=== PATIENT | female | born 1945 | race African-American/Black ===

== ENCOUNTER → 2017-01-11 | Outpatient (CLI) | payer MEDICARE ==
--- NOTE | 2017-01-11 16:04 | BD ---
EXAMINATION TYPE: MG DEXA axial skeleton. DATE OF EXAM: 01/11/2017 8:19 AM COMPARISON: NONE CLINICAL HISTORY: Height: 5 FT 2 1/2 Weight: 169 FRAX RISK QUESTIONS: Alcohol (3 or more units per day): NO Family History (Parent hip fracture): NO Glucocorticoids (More than 3mos): NO (Ex: prednisone, prednisolone, methylprednisolone, dexamethasone, and hydrocortisone). History of Fracture in Adulthood: NO Secondary Osteoporosis: 1. Type 1 Diabetes: NO 2. Hyperthyroidism: NO 3. Menopause before 45: NO 4. Malnutrition: NO 5. Chronic liver disease: NO Rheumatoid Arthritis: NO Current Tobacco Use: NO RISK FACTORS HISTORY OF: Active: YES Postmenopausal woman: AGE 54 MEDICATIONS: Additional Medications: LISINOPRIL, METFORMIN, Additional History: EXAM MEASUREMENTS: Bone mineral densitometry was performed using the Pag[employer] System. Bone mineral density as measured about the Lumbar spine is: ----- L1-L4(G/cm2): 1.307 T Score Values are as follows: ----- L2: 0.9 ----- L3: 0.9 ----- L4: 1.3 ----- L1-L4: 1.1 Bone mineral density has: Decreased -3.3% since study of: 2009 Bone mineral density about the R hip (g/cm2): 0.846 Bone mineral density about the L hip (g/cm2): 0.894 T Score values are as follows: -----R Neck: -1.4 -----L Neck: -1.0 -----R Intertrochanter: -1.4 -----L Intertrochanter: -0.4 Bone mineral density has: Decreased -7.5% since study of: 2009 IMPRESSION: Osteopenia (T Score between -2.5 and -1 as noted by T score values There is slightly increased risk of fracture and the patient may be considered for treatment. Re-Screen 1-2 years. NOTE: T-SCORE=SD OF THE YOUNG ADULT MEAN.
== END | disposition home or self-care (01) ==
LOC: RADBDWWP 08:01
PROVIDERS: ATTEND Family Medicine
DX: Z13.820 Encounter for screening for osteoporosis (principal); Z78.0 Asymptomatic menopausal state
CPT/HCPCS: 77080

== ENCOUNTER → 2017-01-19 | Outpatient (CLI) | payer MEDICARE ==
--- NOTE | 2017-01-19 10:21 | ECHOF ---
Referral Reason:R01.1 cardiac murmur MEASUREMENTS -------- HEIGHT: 157.5 cm WEIGHT: 76.2 kg BP: IVSd: 1.3 cm (0.6 - 1.1) LVIDd: 3.5 cm (3.9 - 5.3) LVPWd: 1.5 cm (0.6 - 1.1) IVSs: 1.8 cm LVIDs: 2.0 cm LVPWs: 2.2 cm Ao Diam: 3.0 cm (2.0 - 3.7) AV Cusp: 2.1 cm (1.5 - 2.6) LA Diam: 3.3 cm (2.7 - 3.8) MV EXCURSION: 14.273 mm (> 18.000) MV EF SLOPE: 81 mm/s (70 - 150) EPSS: 0.5 cm MV E Remy: 0.87 m/s MV DecT: 176 ms MV A Remy: 1.12 m/s MV E/A Ratio: 0.78 RAP: 5.00 mmHg RVSP: 21.70 mmHg FINDINGS -------- Sinus rhythm with extra systolic beats. This was a technically good study. There is mild concentric left ventricular hypertrophy. Overall left ventricular systolic function is normal with, an EF between 55 - 60 %. The right ventricle is normal in size and function. The left atrium is normal in size. The right atrium is normal in size. The aortic valve is trileaflet, and appears structurally normal. No aortic stenosis or regurgitation. The mitral valve leaflets are mildly thickened. Mild mitral regurgitation is present. Mild tricuspid regurgitation present. The right ventricular systolic pressure, as measured by Doppler, is 21.70mmHg. Pulmonic valve appears structurally normal. The aortic root size is normal. The pericardium is normal. CONCLUSIONS -------- 1. Sinus rhythm with extra systolic beats. 2. Mild mitral regurgitation is present. 3. Mild tricuspid regurgitation present. 4. The right ventricular systolic pressure, as measured by Doppler, is 21.70mmHg. 5. Pulmonic valve appears structurally normal. 6. The aortic root size is normal. 7. The pericardium is normal. 8. This was a technically good study. 9. There is mild concentric left ventricular hypertrophy. 10. Overall left ventricular systolic function is normal with, an EF between 55 - 60 %. 11. The right ventricle is normal in size and function. 12. The left atrium is normal in size. 13. The right atrium is normal in size. 14. The aortic valve is trileaflet, and appears structurally normal. No aortic stenosis or regurgitation. 15. The mitral valve leaflets are mildly thickened. RECOVERER: Trina Lozoya RDCS
== END | disposition home or self-care (01) ==
LOC: RADECHMAIN 08:15
PROVIDERS: ATTEND Family Medicine
DX: I08.1 Rheumatic disorders of both mitral and tricuspid valves (principal)
CPT/HCPCS: 93306

== ENCOUNTER → 2017-10-26 | Outpatient (CLI) | payer MEDICARE ==
--- NOTE | 2017-10-26 10:19 | USB ---
Reason for exam: additional evaluation requested from abnormal screening. History: Patient is postmenopausal. Excisional biopsy of the left breast. Took hormonal contraceptives for 4 months beginning at age 18. Physical Findings: Nurse Summary: 1cm nodule in the left breast at 1 o'clock (nurse malena). 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 These results were verbally communicated with the patient and result sheet given to the patient on 10/26/17. ASSESSMENT: Benign, BI-RAD 2 RECOMMENDATION: Return to routine screening mammogram schedule for both breasts. Manage patient on a clinical basis.
== END | disposition home or self-care (01) ==
LOC: RADUSWWP 08:56
PROVIDERS: ATTEND Family Medicine
DX: R92.8 Other abnormal and inconclusive findings on diagnostic imaging of breast (principal)

== ENCOUNTER 2018-02-14 21:18 | Emergency (ER) | payer OTHER, MEDICARE ==
[2018-02-14 21:23] VITALS: RESP 18
[2018-02-14] MEDS ORDERED: KETOROLAC 30 MG/ML 1 ML VIAL IM STA (21:59)
[2018-02-14] MEDS ORDERED: ORPHENADRINE 30 MG/ML 2 ML VIAL IM STA (21:59)
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
--- NOTE | 2018-02-14 22:32 | XR ---
EXAMINATION TYPE: XR cervical spine comp DATE OF EXAM: 02/14/2018 COMPARISON: NONE HISTORY: Neck pain TECHNIQUE: 5 views FINDINGS: Vertebra have normal alignment. There is some narrowing of the disc spaces from C4 to C7 wi th anterior spurring. Neural foramina are fairly well-maintained. Atlantoaxial facet joint is normal. There are no cervical ribs. IMPRESSION: Spondylotic changes in the lower cervical spine as above. No fracture seen.
[2018-02-14 23:14] VITALS: BP 164/86; PULSE 72; TEMP 97.6
== END 2018-02-14 23:14 | disposition home or self-care (01) ==
LOC: EC 21:18
DX: M54.12 Radiculopathy, cervical region (principal); M25.512 Pain in left shoulder; E11.9 Type 2 diabetes mellitus without complications; I10 Essential (primary) hypertension; Z87.891 Personal history of nicotine dependence; Z98.890 Other specified postprocedural states; Z79.84 Long term (current) use of oral hypoglycemic drugs; Z79.899 Other long term (current) drug therapy
CPT/HCPCS: 93005; 72050; 99283; 96372 ×2; J2360; J1885

== ENCOUNTER → 2019-01-02 | Outpatient (CLI) | payer MEDICARE ==
--- NOTE | 2019-01-02 10:22 | MM ---
Reason for exam: additional evaluation requested from prior study. Last mammogram was performed 1 year and 3 months ago. History: Patient is postmenopausal. Excisional biopsy of the left breast. Took hormonal contraceptives for 4 months beginning at age 18. Physical Findings: Nurse Summary: 1cm nodule in the left breast at 11 o'clock (nurse mj). MG 3D Diag Mammo W/Cad ROBINA Bilateral CC and MLO view(s) were taken. Prior study comparison: October 11, 2017, bilateral MG 3d screening mammo w/cad. December 16, 2015, left breast MG 3d work up w/cad LT. The breast tissue is heterogeneously dense. This may lower the sensitivity of mammography. Benign appearing bilateral calcifications in the left breast. Stable right retroareolar density. These results were verbally communicated with the patient and result sheet given to the patient on 01/02/19. ASSESSMENT: Incomplete: need additional imaging evaluation, BI-RAD 0 RECOMMENDATION: Ultrasound of the left breast.
--- NOTE | 2019-01-02 10:23 | USB ---
Reason for exam: additional evaluation requested from abnormal screening. History: Patient is postmenopausal. Excisional biopsy of the left breast. Took hormonal contraceptives for 4 months beginning at age 18. US Breast Limited LT Left limited breast ultrasound including focal area of concern, retroareolar and axilla demonstrates duct ectasia at posterior nipple. These results were verbally communicated with the patient and result sheet given to the patient on 01/02/19. ASSESSMENT: Benign, BI-RAD 2 RECOMMENDATION: Routine screening mammogram of both breasts in 1 year. Manage patient on a clinical basis.
== END | disposition home or self-care (01) ==
LOC: RADMAMWWP 08:50
PROVIDERS: ATTEND Family Medicine
DX: N64.4 Mastodynia (principal); R92.8 Other abnormal and inconclusive findings on diagnostic imaging of breast
CPT/HCPCS: 77066; 76642; G0279; 77062

== ENCOUNTER 2019-01-06 13:55 | Emergency (ER) | payer MEDICARE ==
[2019-01-06] MEDS ORDERED: SODIUM CHLORIDE 0.9% 1,000 ML IV STA (14:31)
[2019-01-06] MEDS ORDERED: DICYCLOMINE 10 MG/ML 2 ML AMP IM STA (14:32)
[2019-01-06 14:55] LABS: Basophils % (A) 0 %; Eosinophils # (A) 0.2 k/uL (0-0.7); Eosinophils % (A) 2 %; HCT 45.2 % (34.0-46.0); HGB 14.7 gm/dL (11.4-16.0); Lymphocytes # (A) 0.7 k/uL (1.0-4.8); Lymphocytes % (A) 8 %; MCH 28.2 pg (25.0-35.0); MCHC 32.5 g/dL (31.0-37.0); MCV 86.9 fL (80.0-100.0); Mean Platelet Volume 6.8; Monocytes # (A) 0.2 k/uL (0-1.0); Monocytes % (A) 3 %; Neutrophils % (A) 86 %; Platelet Count 338 k/uL (150-450); RBC 5.21 m/uL (3.80-5.40); RDW 12.9 % (11.5-15.5); WBC 8.1 k/uL (3.8-10.6)
[2019-01-06 15:06] LABS: Calcium 9.4 mg/dL (8.4-10.2); Potassium 4.6 mmol/L (3.5-5.1); Total Bilirubin 0.5 mg/dL (0.2-1.3); Total Protein 7.1 g/dL (6.3-8.2)
--- NOTE | 2019-01-06 15:17 | ED ---
Abdominal Pain HPI - General Chief Complaint: Abdominal Pain Stated Complaint: Stomach pain Time Seen by Provider: 01/06/19 14:12 Source: patient Mode of arrival: wheelchair Limitations: no limitations - History of Present Illness Initial Comments: Patient is a 73-year-old female presenting for abdominal pain. The patient states that the pain is been present in the bilateral upper quadrants of her abdomen since 8 AM. This is a sharp intermittent sensation without radiation. It is associated with one episode of nausea and vomiting. She denies any diarrhea or fevers or chills. She also denies any urinary symptoms. She states that she has got no past medical problems with her abdomen. - Related Data Home Medications Medication Instructions Recorded Confirmed Cyanocobalamin [Vitamin B-12] 500 mcg PO DAILY 02/09/15 01/06/19 metFORMIN HCL 1,000 mg PO BID 02/09/15 01/06/19 Cholecalciferol [Vitamin D3] 1,000 unit PO DAILY 02/14/18 01/06/19 Lisinopril [Prinivil] 20 mg PO BID 02/14/18 01/06/19 Bimatoprost [Lumigan .01% Ophth 1 drop BOTH EYES HS 01/06/19 01/06/19 Soln] Previous Rx's Medication Instructions Recorded Dicyclomine [Bentyl] 20 mg PO QID PRN #20 tablet 01/06/19 Hydrocodone/Acetaminophen [[place] 1 tab PO Q6HR PRN #12 tab 01/06/19 7.5-325] Allergies Allergy/AdvReac Type Severity Reaction Status Date / Time No Known Allergies Allergy Verified 01/06/19 14:44 Review of Systems ROS Statement: Those systems with pertinent positive or pertinent negative responses have been documented in the HPI. Constitutional: Negative for chills, fatigue and fever. HENT: Negative for congestion. Respiratory: Negative for chest tightness, shortness of breath and wheezing. Negative for cough Cardiovascular: Negative for chest pain and palpitations. Gastrointestinal: Positive for abdominal pain and nausea. Negative for abdominal distention, diarrhea, and vomiting. Genitourinary: Negative for dysuria. Musculoskeletal: Negative for back pain, neck pain and neck stiffness. Skin: Negative for color change. Neurological: Negative for dizziness, speech difficulty, weakness and light- headedness. Psychiatric/Behavioral: Negative for agitation and confusion. Negative for anxiety ROS Other: All systems not noted in ROS Statement are negative. Past Medical History Past Medical History: Diabetes Mellitus, Hyperlipidemia, Hypertension Additional Past Medical History / Comment(s): 02/09/15 Pt presented to [facility] ER withc/o about 4 days ago experiencing a burning pain in the back of her L upper arm and eventually went into L breast. Then on Monday the pain was much worse. This AM the pain then went thru to her L scapula and was more severe. It is sometimes shooting sharp pain but has also been a throbbing type pain as well. Other HX: NIDDM, low WBC count which is normal for her, heart murmur, syncopy at age 16 yrs from low B/P, bilateral carpal tunnel syndrome but no longer bothers her. History of Any Multi-Drug Resistant Organisms: MRSA Date of last positivie culture/infection: 06/25/18 MDRO Source:: Right Knee Past Surgical History: Unable to Obtain, Breast Surgery Additional Past Surgical History / Comment(s): L breast bx-negative, D&C for possible miscarriage, colonoscopy-normal. Past Anesthesia/Blood Transfusion Reactions: No Reported Reaction Past Psychological History: No Psychological Hx Reported Smoking Status: Former smoker Past Alcohol Use History: None Reported Past Drug Use History: None Reported - Past Family History Father Additional Family Medical History / Comment(s): Pt does not know her father. Mother Family Medical History: Coronary Artery Disease (CAD), Diabetes Mellitus, Hypertension Additional Family Medical History / Comment(s): Mother at age 76yrs. She had an enlarged heart General Exam - General Exam Comments Initial Comments: Constitutional: Pt appears well-developed and well-nourished. No distress. Head: Normocephalic and atraumatic. Eyes: EOM are normal. Neck: Normal range of motion. Neck supple. Cardiovascular: Normal rate, regular rhythm, S1 normal, S2 normal and normal heart sounds. Exam reveals no gallop and no friction rub. No murmur heard. Pulmonary/Chest: Effort normal and breath sounds normal. No tachypnea and no bradypnea. No respiratory distress. No wheezes or rales noted. Abdominal: Soft. Bowel sounds are normal. Pt exhibits no shifting dullness, no distension, no pulsatile liver, no fluid wave, no abdominal bruit and no ascites. There is no rigidity, no rebound, no guarding, no tenderness at McBurney's point and negative Pimentel's sign. There is no tenderness. Musculoskeletal: Normal range of motion. Neurological: Pt is alert and oriented to person, place, and time. No cranial nerve deficit. Skin: Skin is warm and dry. No rash noted. Pt is not diaphoretic. No erythema. No pallor. Psychiatric: Pt has a normal mood and affect. Pt behavior is normal. Thought content normal. Limitations: no limitations Course Vital Signs 01/06/19 01/06/19 13:58 17:11 Temperature 98 F 98.4 F Pulse Rate 97 68 Respiratory 18 16 Rate Blood Pressure 181/102 156/82 O2 Sat by Pulse 100 98 Oximetry Medical Decision Making - Medical Decision Making Laboratory studies showed that there was no significant leukocytosis, electrolyte derangements and lactic acid was within normal limits. There is no evidence of transaminitis or pancreatitis as well. There was questionable urinary tract infection but because the patient was completely asymptomatic, it was determined that this is unlikely to be a urinary tract infection. CT of the abdomen was performed and shoed that there are long segments of small bowel with wall thickening and edema. There was mild mesenteric small bowel edema mild to moderate ascites fluid. Findings were consistent with inflammatory bowel disease. Because the patient's pain was well controlled and there was no clear source of infection, it was felt that the patient be safely discharged with pain control with close follow-up with GI. Patient was agreeable to plan and noted to be resting in bed comfortably in no acute distress at time of disposition - Lab Data Result diagrams: 01/06/19 14:41 01/06/19 14:41 Lab Results 01/06/19 01/06/19 01/06/19 Range/Units 14:41 14:41 14:41 WBC 8.1 (3.8-10.6) k/uL RBC 5.21 (3.80-5.40) m/uL Hgb 14.7 (11.4-16.0) gm/dL Hct 45.2 (34.0-46.0) % MCV 86.9 (80.0-100.0) fL MCH 28.2 (25.0-35.0) pg MCHC 32.5 (31.0-37.0) g/dL RDW 12.9 (11.5-15.5) % Plt Count 338 (150-450) k/uL Neutrophils % 86 % Lymphocytes % 8 % Monocytes % 3 % Eosinophils % 2 % Basophils % 0 % Neutrophils # 7.0 (1.3-7.7) k/uL Lymphocytes # 0.7 L (1.0-4.8) k/uL Monocytes # 0.2 (0-1.0) k/uL Eosinophils # 0.2 (0-0.7) k/uL Basophils # 0.0 (0-0.2) k/uL APTT (22.0-30.0) sec Sodium 140 (137-145) mmol/L Potassium 4.6 (3.5-5.1) mmol/L Chloride 104 (98-107) mmol/L Carbon Dioxide 26 (22-30) mmol/L Anion Gap 10 mmol/L BUN 11 (7-17) mg/dL Creatinine 0.83 (0.52-1.04) mg/dL Est GFR (CKD-EPI)AfAm 83 (>60 ml/min/1.73 sqM) Est GFR (CKD-EPI)NonAf 72 (>60 ml/min/1.73 sqM) Glucose 223 H (74-99) mg/dL Plasma Lactic Acid Manuel 1.8 (0.7-2.0) mmol/L Calcium 9.4 (8.4-10.2) mg/dL Total Bilirubin 0.5 (0.2-1.3) mg/dL AST 15 (14-36) U/L ALT 26 (9-52) U/L Alkaline Phosphatase 84 (38-126) U/L Troponin I (0.000-0.034) ng/mL Total Protein 7.1 (6.3-8.2) g/dL Albumin 4.0 (3.5-5.0) g/dL Lipase 49 (23-300) U/L Urine Color Urine Appearance (Clear) Urine pH (5.0-8.0) Ur Specific [place] (1.001-1.035) Urine Protein (Negative) Urine Glucose (UA) (Negative) Urine Ketones (Negative) Urine Blood (Negative) Urine Nitrite (Negative) Urine Bilirubin (Negative) Urine Urobilinogen (<2.0) mg/dL Ur Leukocyte Esterase (Negative) Urine RBC (0-5) /hpf Urine WBC (0-5) /hpf Ur Squamous Epith Cells (0-4) /hpf Urine Mucus (None) /hpf 01/06/19 01/06/19 01/06/19 Range/Units 14:41 14:41 15:57 WBC (3.8-10.6) k/uL RBC (3.80-5.40) m/uL Hgb (11.4-16.0) gm/dL Hct (34.0-46.0) % MCV (80.0-100.0) fL MCH (25.0-35.0) pg MCHC (31.0-37.0) g/dL RDW (11.5-15.5) % Plt Count (150-450) k/uL Neutrophils % % Lymphocytes % % Monocytes % % Eosinophils % % Basophils % % Neutrophils # (1.3-7.7) k/uL Lymphocytes # (1.0-4.8) k/uL Monocytes # (0-1.0) k/uL Eosinophils # (0-0.7) k/uL Basophils # (0-0.2) k/uL APTT 22.1 (22.0-30.0) sec Sodium (137-145) mmol/L Potassium (3.5-5.1) mmol/L Chloride (98-107) mmol/L Carbon Dioxide (22-30) mmol/L Anion Gap mmol/L BUN (7-17) mg/dL Creatinine (0.52-1.04) mg/dL Est GFR (CKD-EPI)AfAm (>60 ml/min/1.73 sqM) Est GFR (CKD-EPI)NonAf (>60 ml/min/1.73 sqM) Glucose (74-99) mg/dL Plasma Lactic Acid Manuel (0.7-2.0) mmol/L Calcium (8.4-10.2) mg/dL Total Bilirubin (0.2-1.3) mg/dL AST (14-36) U/L ALT (9-52) U/L Alkaline Phosphatase (38-126) U/L Troponin I <0.012 (0.000-0.034) ng/mL Total Protein (6.3-8.2) g/dL Albumin (3.5-5.0) g/dL Lipase (23-300) U/L Urine Color Light Yellow Urine Appearance Clear (Clear) Urine pH 6.5 (5.0-8.0) Ur Specific [place] 1.047 H (1.001-1.035) Urine Protein Negative (Negative) Urine Glucose (UA) Negative (Negative) Urine Ketones Trace H (Negative) Urine Blood Negative (Negative) Urine Nitrite Negative (Negative) Urine Bilirubin Negative (Negative) Urine Urobilinogen <2.0 (<2.0) mg/dL Ur Leukocyte Esterase Moderate H (Negative) Urine RBC 1 (0-5) /hpf Urine WBC 10 H (0-5) /hpf Ur Squamous Epith Cells 6 H (0-4) /hpf Urine Mucus Rare H (None) /hpf - EKG Data EKG Comments: EKG shows normal sinus rhythm with a rate of 84 bpm, ID interval 166, QRS 84, QTC 446. There are no significant ST depressions or elevations. Disposition Clinical Impression: Abdominal pain, Edema of small intestine Disposition: HOME SELF-CARE Condition: Good Instructions (If sedation given, give patient instructions): Abdominal Pain (ED ) Prescriptions: Dicyclomine [Bentyl] 20 mg PO QID PRN #20 tablet PRN Reason: Pain Hydrocodone/Acetaminophen [[place] 7.5-325] 1 tab PO Q6HR PRN #12 tab PRN Reason: Pain Is patient prescribed a controlled substance at d/c from ED?: Yes When asked, does pt state using other controlled substances?: No If prescribed controlled substance>3 days was MAPS reviewed?: Prescribed <3 Days If opioid is for acute pain is fill amount 7 days or less?: Yes If Rx opioid, was Start Talking consent form obtained?: Yes Referrals: Miquel Allen DO [Primary Care Provider] - 1-2 days Darrel Merrill MD [STAFF PHYSICIAN] - 1-2 days Time of Disposition: 17:20
--- NOTE | 2019-01-06 16:07 | CT ---
EXAMINATION TYPE: CT abdomen pelvis w con DATE OF EXAM: 01/06/2019 COMPARISON: None HISTORY: abdominal pain and distention CT DLP: 933.9 mGycm Automated exposure control for dose reduction was used. TECHNIQUE: Helical acquisition of images was performed from the lung bases through the pelvis. CONTRAST: Performed without Oral Contrast and with IV Contrast, patient injected with 100 mL of Isovue 300. FINDINGS: There is some linear density at the left lung base. There is no pericardial effusion. Heart appears s lightly enlarged. There is interstitial density in the right paraspinal right lower lobe. Stomach appears normal. Liver spleen pancreas appear normal. Bile ducts are not dilated. Gallbladder appears normal. There is mild free fluid in the abdomen. There is no adrenal mass. Kidneys show satisfactory contrast opacification. There is no hydronephrosi s. There is a long segment of jejunal wall thickening and edema. There is mild small bowel mesenteric ed arcadio. There is distal ileum with wall thickening also. There is no sign of free air. There is moderate free fluid in the pelvis. Bladder distends smoothly. There is no inguinal hernia. The lumbar spine i s intact. I see no bony destructive process. There is multilevel lumbar bony spinal stenosis. IMPRESSION: THERE IS A LONG SEGMENTS OF SMALL BOWEL WITH WALL THICKENING AND EDEMA. THERE IS MILD MESENTERIC SMAL L BOWEL EDEMA. MILD TO MODERATE ASCITES FLUID. FINDINGS ARE CONSISTENT WITH INFLAMMATORY BOWEL DISEAS E.. I DO NOT SEE EVIDENCE FOR MECHANICAL BOWEL OBSTRUCTION. Multilevel lumbar spinal stenosis. Patchy linear mild infiltrate and atelectasis at the lung bases.
[2019-01-06 16:13] LABS: Appearance,Urine Clear (Clear); Bilirubin,Urine Negative (Negative); Blood,Urine Negative (Negative); Color,Urine Light Yellow; Glucose,Urine (UA) Negative (Negative); Ketones,Urine Trace (Negative); Leukocyte Esterase,Urine Moderate (Negative); Mucus,Urine Rare /hpf; Nitrite,Urine Negative (Negative); PH, Urine 6.5 (5.0-8.0); Protein,Urine Negative (Negative); RBC,Urine 1 /hpf (0-5); Squamous Epithelial Cell,Urine 6 /hpf (0-4); Urobilinogen,Urine <2.0 mg/dL (<2.0)
[2019-01-06 16:16] LABS: Specific Gravity,Urine 1.047 (1.001-1.035)
[2019-01-06] MEDS ORDERED: MORPHINE SULFATE 4 MG/ML SYRINGE IVP STA (16:16)
[2019-01-06 17:12] VITALS: BP 156/82; PULSE 68; RESP 16; TEMP 98.4
== END 2019-01-06 17:41 | disposition home or self-care (01) ==
LOC: EC 13:55
DX: K63.89 Other specified diseases of intestine (principal); R10.11 Right upper quadrant pain; R10.12 Left upper quadrant pain; R11.2 Nausea with vomiting, unspecified; E11.9 Type 2 diabetes mellitus without complications; E78.5 Hyperlipidemia, unspecified; I10 Essential (primary) hypertension; Z86.14 Personal history of Methicillin resistant Staphylococcus aureus infection; Z87.891 Personal history of nicotine dependence; Z79.84 Long term (current) use of oral hypoglycemic drugs; Z79.899 Other long term (current) drug therapy
CPT/HCPCS: 36415; 93005; 80053; 83605; 83690; 84484; 85025; 85730; 81001; 87086; 74177; 99284; 96374; 96361 ×2; 96372; J2270; J0500; Q9967

== ENCOUNTER 2019-07-18 06:46 | Day surgery (SDC) | payer MEDICARE ==
[2019-07-16 14:25] VITALS: BMI 29.4
[2019-07-18 07:19] VITALS: TEMP 96.5
[2019-07-18 07:20] LABS: Glucose,Whole Blood 128 mg/dL (75-99)
[2019-07-18] MEDS ORDERED: LACTATED RINGERS 1,000 ML IV ONE (07:22)
[2019-07-18] MEDS ORDERED: LIDOCAINE 1% INJ 10MG/ML (20 ML MDV) ONE (07:35)
[2019-07-18] MEDS ORDERED: PROPOFOL 10 MG/ML 20 ML VIAL IV ONE (07:35)
--- NOTE | 2019-07-18 08:25 | P.PCN ---
Date of Procedure: 07/18/19 Description of Procedure: BRIEF HISTORY: 73-year-old female presents for outpatient screening colonoscopy. Patient is having colonoscopy for screening malignancy colon. No prior GI problems oriented, denying any change in bowel habits, blood per rectum, constipation or diarrhea. No family history of colon cancer. Does report prior colonoscopy which she believes was normal. PROCEDURE PERFORMED: Colonoscopy with polypectomy. PREOPERATIVE DIAGNOSIS: Screening for malignant neoplasm colon, last colonoscopy approximately 5 years ago. ESTIMATED BLOOD LOSS: Minimal. IV sedation per Anesthesia. PROCEDURE: After informed consent was obtained, the patient, was brought into the endoscopy unit. IV sedation was administered by Anesthesia under continuous monitoring. Digital rectal examination was normal. Initially the Olympus CF-190 flexible video colonoscope was then inserted in the rectum, gradually advanced into the cecum without any difficulty. Careful examination was performed as the scope was gradually being withdrawn. Ileocecal valve and the appendiceal orifice were visualized and appeared normal. Prep was excellent. Mucosa of the cecum, ascending colon, transverse colon, descending colon, sigmoid colon, and rectum appeared normal. Diminutive sessile 2 mm ascending colon polyp removed with cold forcep polypectomy. Numerous small and large diverticula in the sigmoid and descending colon. Retroflexion was performed in the rectum and no lesions were seen, mild internal hemorrhoids. The patient tolerated the procedure well. IMPRESSION: Normal-appearing colon from rectum to cecum. Diminutive ascending colon polyp removed with cold forceps. Moderate left-sided diverticulosis. RECOMMENDATIONS: Findings of this examination were discussed with the patient and her . Okay to resume high-fiber diet. Okay to resume medications. Recommendation is for repeat colonoscopy in 5 years if pathology consistent with tubular adenoma.
[2019-07-18 08:50] VITALS: BP 148/77; PULSE 61; RESP 16
== END 2019-07-18 09:18 | disposition home or self-care (01) ==
LOC: ORWHC2ENDO 06:46
PROVIDERS: ATTEND Internal Medicine
DX: Z12.11 Encounter for screening for malignant neoplasm of colon (principal); D12.2 Benign neoplasm of ascending colon; K57.30 Diverticulosis of large intestine without perforation or abscess without bleeding; K64.8 Other hemorrhoids; Z87.891 Personal history of nicotine dependence; I10 Essential (primary) hypertension; E11.9 Type 2 diabetes mellitus without complications; M19.90 Unspecified osteoarthritis, unspecified site; Z79.84 Long term (current) use of oral hypoglycemic drugs; Z79.899 Other long term (current) drug therapy
CPT/HCPCS: 88305; 45380; J2001; J2704

== ENCOUNTER → 2020-09-04 | Outpatient (CLI) | payer MEDICARE ==
--- NOTE | 2020-09-08 08:48 | MM ---
Reason for exam: screening (asymptomatic). Last mammogram was performed 1 year and 8 months ago. History: Patient is postmenopausal. Excisional biopsy of the left breast. Took hormonal contraceptives for 4 months beginning at age 18. Physical Findings: A clinical breast exam by your physician is recommended on an annual basis and results should be correlated with mammographic findings. MG 3D Screening Mammo W/Cad Bilateral CC, MLO, and XCCL view(s) were taken. Prior study comparison: January 02, 2019, bilateral MG 3d diag mammo w/cad ROBINA. October 11, 2017, bilateral MG 3d screening mammo w/cad. The breast tissue is heterogeneously dense. This may lower the sensitivity of mammography. Benign appearing bilateral calcifications. No significant changes when compared with prior studies. ASSESSMENT: Benign, BI-RAD 2 RECOMMENDATION: Routine screening mammogram of both breasts in 1 year.
== END | disposition home or self-care (01) ==
LOC: RADMAMWWP 15:59
PROVIDERS: ATTEND Family Medicine
DX: Z12.31 Encounter for screening mammogram for malignant neoplasm of breast (principal)
CPT/HCPCS: 77063; 77067

== ENCOUNTER 2020-10-06 11:43 | Emergency (ER) | payer MEDICARE ==
[2020-10-06 11:49] VITALS: RESP 18
[2020-10-06 12:32] LABS: Basophils % (A) 1 %; Eosinophils # (A) 0.1 k/uL (0-0.7); Eosinophils % (A) 2 %; HGB 13.6 gm/dL (11.4-16.0); Lymphocytes # (A) 0.7 k/uL (1.0-4.8); Lymphocytes % (A) 24 %; MCV 85.4 fL (80.0-100.0); Mean Platelet Volume 7.4; Monocytes # (A) 0.1 k/uL (0-1.0); Monocytes % (A) 4 %; Neutrophils # (A) 2.1 k/uL (1.3-7.7); Neutrophils % (A) 68 %; Platelet Count 187 k/uL (150-450); RBC 4.69 m/uL (3.80-5.40); RDW 12.2 % (11.5-15.5)
--- NOTE | 2020-10-06 12:42 | XR ---
EXAMINATION TYPE: XR chest 2V DATE OF EXAM: 10/06/2020 COMPARISON: 02/09/2015 TECHNIQUE: PA and lateral views submitted. HISTORY: cough FINDINGS: Patchy perihilar and left lower lobe subsegmental consolidation. No pneumothorax. No pleural effusion . Hypertrophic and degenerative change of the spine. Heart size stable. No pneumothorax. IMPRESSION: 1. Coarsened perihilar interstitial changes with left lower lobe subsegmental consolidation correlate for interstitial pneumonitis with left lower lobe atelectasis or early pneumonia.
--- NOTE | 2020-10-06 12:45 | ED ---
Weakness HPI - General Chief complaint: Weakness Stated complaint: fatigue Time Seen by Provider: 10/06/20 12:34 Source: patient, RN notes reviewed Mode of arrival: wheelchair Limitations: no limitations - History of Present Illness Initial comments: 75-year-old female presents emergency Department chief complaint of generalized fatigue. Patient states her last 4-5 days she's had extreme fatigue states that she has no energy to do anything. She denies any chest pain or shortness breath. She states that she's had a cough which is nonproductive. Denies any abdominal complaints including nausea and diarrhea constipation. No neck pain headache dizziness. has no sick contacts. Patient states she feels that she may have overdone it but is unsure. Patient does take medication for hypertension and diabetes. - Related Data Home Medications Medication Instructions Recorded Confirmed Cyanocobalamin [Vitamin B-12] 500 mcg PO DAILY 02/09/15 10/06/20 metFORMIN HCL 1,000 mg PO BID 02/09/15 10/06/20 lisinopriL [Prinivil] 20 mg PO BID 02/14/18 10/06/20 Bimatoprost [Lumigan .01% Ophth 1 drop BOTH EYES HS 10/06/20 10/06/20 Soln] Repaglinide [Prandin] 0.5 mg PO AC-BID 10/06/20 10/06/20 Rosuvastatin Calcium [Crestor] 5 mg PO MOWEFR 10/06/20 10/06/20 Allergies Allergy/AdvReac Type Severity Reaction Status Date / Time No Known Allergies Allergy Verified 10/06/20 13:15 Review of Systems ROS Statement: Those systems with pertinent positive or pertinent negative responses have been documented in the HPI. ROS Other: All systems not noted in ROS Statement are negative. Past Medical History Past Medical History: Diabetes Mellitus, Hyperlipidemia, Hypertension, Osteoarthritis (OA) Additional Past Medical History / Comment(s): HX: NIDDM, low WBC count which Dr told her is normal for her, heart murmur., States itching under breasts. History of Any Multi-Drug Resistant Organisms: MRSA Date of last positivie culture/infection: 06/25/18 MDRO Source:: Right Knee Past Surgical History: Breast Surgery Additional Past Surgical History / Comment(s): L breast bx, D&C for possible miscarriage, colonoscopy Past Anesthesia/Blood Transfusion Reactions: No Reported Reaction Past Psychological History: No Psychological Hx Reported Smoking Status: Never smoker Past Alcohol Use History: None Reported Past Drug Use History: None Reported - Past Family History Father Additional Family Medical History / Comment(s): Pt does not know her father. Mother Family Medical History: Coronary Artery Disease (CAD), Diabetes Mellitus, Hypertension Additional Family Medical History / Comment(s): Mother at age 76yrs. She had an enlarged heart General Exam Limitations: no limitations General appearance: alert, in no apparent distress Head exam: Present: atraumatic, normocephalic, normal inspection Eye exam: Present: normal appearance, PERRL, EOMI. Absent: scleral icterus, conjunctival injection, periorbital swelling ENT exam: Present: normal exam, normal oropharynx, mucous membranes moist, TM's normal bilaterally Neck exam: Present: normal inspection, full ROM. Absent: tenderness, meningismus, lymphadenopathy Respiratory exam: Present: normal lung sounds bilaterally. Absent: respiratory distress, wheezes, rales, rhonchi, stridor Cardiovascular Exam: Present: regular rate, normal rhythm, normal heart sounds. Absent: systolic murmur, diastolic murmur, rubs, gallop, clicks GI/Abdominal exam: Present: soft, normal bowel sounds. Absent: distended, tenderness, guarding, rebound, rigid Neurological exam: Present: alert, oriented X3, CN II-XII intact, reflexes normal. Absent: motor sensory deficit Skin exam: Present: warm, dry, intact, normal color. Absent: rash Course Vital Signs 10/06/20 10/06/20 11:45 13:10 Temperature 98.7 F 98.3 F Pulse Rate 62 75 Respiratory 18 18 Rate Blood Pressure 124/78 115/83 O2 Sat by Pulse 97 95 Oximetry Medical Decision Making - Medical Decision Making 74-year-old female presented for generalized fatigue. Patient's labs revealed patient has positive, virus. X-ray does not show any large ammonia are multiple focal areas. Patient's pulse ox is been within normal limits, patients no signs of distress. Patient will be discharged in stable condition she advised to stop quarantine for 14 days, take [id number] vitamin D, vitamin D3, zinc she denies return for any worsening change in symptoms. - Lab Data Result diagrams: 10/06/20 12:19 10/06/20 12:19 Lab Results 10/06/20 10/06/20 10/06/20 Range/Units 12:19 12:19 12:19 WBC 3.0 L (3.8-10.6) k/uL RBC 4.69 (3.80-5.40) m/uL Hgb 13.6 (11.4-16.0) gm/dL Hct 40.0 (34.0-46.0) % MCV 85.4 (80.0-100.0) fL MCH 29.0 (25.0-35.0) pg MCHC 34.0 (31.0-37.0) g/dL RDW 12.2 (11.5-15.5) % Plt Count 187 (150-450) k/uL MPV 7.4 Neutrophils % 68 % Lymphocytes % 24 % Monocytes % 4 % Eosinophils % 2 % Basophils % 1 % Neutrophils # 2.1 (1.3-7.7) k/uL Lymphocytes # 0.7 L (1.0-4.8) k/uL Monocytes # 0.1 (0-1.0) k/uL Eosinophils # 0.1 (0-0.7) k/uL Basophils # 0.0 (0-0.2) k/uL PT 9.5 (9.0-12.0) sec INR 0.9 (<1.2) APTT 25.2 (22.0-30.0) sec Sodium 134 L (137-145) mmol/L Potassium 4.9 (3.5-5.1) mmol/L Chloride 103 (98-107) mmol/L Carbon Dioxide 23 (22-30) mmol/L Anion Gap 8 mmol/L BUN 35 H (7-17) mg/dL Creatinine 1.27 H (0.52-1.04) mg/dL Est GFR (CKD-EPI)AfAm 49 (>60 ml/min/1.73 sqM) Est GFR (CKD-EPI)NonAf 42 (>60 ml/min/1.73 sqM) Glucose 144 H (74-99) mg/dL Plasma Lactic Acid Manuel (0.7-2.0) mmol/L Calcium 8.7 (8.4-10.2) mg/dL Total Bilirubin 0.4 (0.2-1.3) mg/dL AST 38 H (14-36) U/L ALT 15 (4-34) U/L Alkaline Phosphatase 47 (38-126) U/L Troponin I (0.000-0.034) ng/mL Total Protein 6.9 (6.3-8.2) g/dL Albumin 3.8 (3.5-5.0) g/dL Urine Color Urine Appearance (Clear) Urine pH (5.0-8.0) Ur Specific [place] (1.001-1.035) Urine Protein (Negative) Urine Glucose (UA) (Negative) Urine Ketones (Negative) Urine Blood (Negative) Urine Nitrite (Negative) Urine Bilirubin (Negative) Urine Urobilinogen (<2.0) mg/dL Ur Leukocyte Esterase (Negative) Urine WBC (0-5) /hpf Ur Squamous Epith Cells (0-4) /hpf Urine Bacteria (None) /hpf Hyaline Casts (0-2) /lpf Urine Mucus (None) /hpf Coronavirus (PCR) (Not Detectd) 10/06/20 10/06/20 10/06/20 Range/Units 12:19 12:19 13:04 WBC (3.8-10.6) k/uL RBC (3.80-5.40) m/uL Hgb (11.4-16.0) gm/dL Hct (34.0-46.0) % MCV (80.0-100.0) fL MCH (25.0-35.0) pg MCHC (31.0-37.0) g/dL RDW (11.5-15.5) % Plt Count (150-450) k/uL MPV Neutrophils % % Lymphocytes % % Monocytes % % Eosinophils % % Basophils % % Neutrophils # (1.3-7.7) k/uL Lymphocytes # (1.0-4.8) k/uL Monocytes # (0-1.0) k/uL Eosinophils # (0-0.7) k/uL Basophils # (0-0.2) k/uL PT (9.0-12.0) sec INR (<1.2) APTT (22.0-30.0) sec Sodium (137-145) mmol/L Potassium (3.5-5.1) mmol/L Chloride (98-107) mmol/L Carbon Dioxide (22-30) mmol/L Anion Gap mmol/L BUN (7-17) mg/dL Creatinine (0.52-1.04) mg/dL Est GFR (CKD-EPI)AfAm (>60 ml/min/1.73 sqM) Est GFR (CKD-EPI)NonAf (>60 ml/min/1.73 sqM) Glucose (74-99) mg/dL Plasma Lactic Acid Manuel 1.3 (0.7-2.0) mmol/L Calcium (8.4-10.2) mg/dL Total Bilirubin (0.2-1.3) mg/dL AST (14-36) U/L ALT (4-34) U/L Alkaline Phosphatase (38-126) U/L Troponin I <0.012 (0.000-0.034) ng/mL Total Protein (6.3-8.2) g/dL Albumin (3.5-5.0) g/dL Urine Color Yellow Urine Appearance Cloudy H (Clear) Urine pH 5.5 (5.0-8.0) Ur Specific [place] 1.021 (1.001-1.035) Urine Protein 1+ H (Negative) Urine Glucose (UA) Negative (Negative) Urine Ketones Negative (Negative) Urine Blood Negative (Negative) Urine Nitrite Negative (Negative) Urine Bilirubin Negative (Negative) Urine Urobilinogen <2.0 (<2.0) mg/dL Ur Leukocyte Esterase Small H (Negative) Urine WBC 1 (0-5) /hpf Ur Squamous Epith Cells 4 (0-4) /hpf Urine Bacteria Occasional H (None) /hpf Hyaline Casts 23 H (0-2) /lpf Urine Mucus Occasional H (None) /hpf Coronavirus (PCR) (Not Detectd) 10/06/20 Range/Units 13:04 WBC (3.8-10.6) k/uL RBC (3.80-5.40) m/uL Hgb (11.4-16.0) gm/dL Hct (34.0-46.0) % MCV (80.0-100.0) fL MCH (25.0-35.0) pg MCHC (31.0-37.0) g/dL RDW (11.5-15.5) % Plt Count (150-450) k/uL MPV Neutrophils % % Lymphocytes % % Monocytes % % Eosinophils % % Basophils % % Neutrophils # (1.3-7.7) k/uL Lymphocytes # (1.0-4.8) k/uL Monocytes # (0-1.0) k/uL Eosinophils # (0-0.7) k/uL Basophils # (0-0.2) k/uL PT (9.0-12.0) sec INR (<1.2) APTT (22.0-30.0) sec Sodium (137-145) mmol/L Potassium (3.5-5.1) mmol/L Chloride (98-107) mmol/L Carbon Dioxide (22-30) mmol/L Anion Gap mmol/L BUN (7-17) mg/dL Creatinine (0.52-1.04) mg/dL Est GFR (CKD-EPI)AfAm (>60 ml/min/1.73 sqM) Est GFR (CKD-EPI)NonAf (>60 ml/min/1.73 sqM) Glucose (74-99) mg/dL Plasma Lactic Acid Manuel (0.7-2.0) mmol/L Calcium (8.4-10.2) mg/dL Total Bilirubin (0.2-1.3) mg/dL AST (14-36) U/L ALT (4-34) U/L Alkaline Phosphatase (38-126) U/L Troponin I (0.000-0.034) ng/mL Total Protein (6.3-8.2) g/dL Albumin (3.5-5.0) g/dL Urine Color Urine Appearance (Clear) Urine pH (5.0-8.0) Ur Specific [place] (1.001-1.035) Urine Protein (Negative) Urine Glucose (UA) (Negative) Urine Ketones (Negative) Urine Blood (Negative) Urine Nitrite (Negative) Urine Bilirubin (Negative) Urine Urobilinogen (<2.0) mg/dL Ur Leukocyte Esterase (Negative) Urine WBC (0-5) /hpf Ur Squamous Epith Cells (0-4) /hpf Urine Bacteria (None) /hpf Hyaline Casts (0-2) /lpf Urine Mucus (None) /hpf Coronavirus (PCR) Detected A (Not Detectd) Disposition Clinical Impression: COVID-19 Disposition: HOME SELF-CARE Condition: Stable Instructions (If sedation given, give patient instructions): Upper Respiratory Infection (ED) Additional Instructions: Please return to the Emergency Department if symptoms worsen or any other concerns. Is patient prescribed a controlled substance at d/c from ED?: No Referrals: Miquel Allen DO [Primary Care Provider] - 1-2 days Time of Disposition: 13:48
[2020-10-06 12:46] LABS: Albumin 3.8 g/dL (3.5-5.0); Calcium 8.7 mg/dL (8.4-10.2); Potassium 4.9 mmol/L (3.5-5.1); Total Bilirubin 0.4 mg/dL (0.2-1.3); Total Protein 6.9 g/dL (6.3-8.2)
[2020-10-06 12:47] LABS: INR 0.9 (<1.2); Partial Thromboplastin Time 25.2 sec (22.0-30.0); Prothrombin Time 9.5 sec (9.0-12.0)
[2020-10-06 13:14] VITALS: BP 115/83; PULSE 75; TEMP 98.3
[2020-10-06 13:24] LABS: Appearance,Urine Cloudy (Clear); Bacteria,Urine Occasional /hpf; Bilirubin,Urine Negative (Negative); Blood,Urine Negative (Negative); Color,Urine Yellow; Glucose,Urine (UA) Negative (Negative); Hyaline Casts,Urine 23 /lpf (0-2); Ketones,Urine Negative (Negative); Leukocyte Esterase,Urine Small (Negative); Mucus,Urine Occasional /hpf; Nitrite,Urine Negative (Negative); PH, Urine 5.5 (5.0-8.0); Protein,Urine 1+ (Negative); Specific Gravity,Urine 1.021 (1.001-1.035); Squamous Epithelial Cell,Urine 4 /hpf (0-4); Urobilinogen,Urine <2.0 mg/dL (<2.0); WBC,Urine 1 /hpf (0-5)
[2020-10-06] MEDS ORDERED: SODIUM CHLORIDE 0.9% 1,000 ML IV ONE (13:27)
== END 2020-10-06 14:54 | disposition home or self-care (01) ==
LOC: EC 11:43
DX: U07.1 COVID-19 (principal); E11.9 Type 2 diabetes mellitus without complications; E78.5 Hyperlipidemia, unspecified; I10 Essential (primary) hypertension; M19.90 Unspecified osteoarthritis, unspecified site; Z79.84 Long term (current) use of oral hypoglycemic drugs; Z79.899 Other long term (current) drug therapy; Z86.14 Personal history of Methicillin resistant Staphylococcus aureus infection
CPT/HCPCS: 36415; 71046; 80053; 81001; 83605; 84484; 85025; 85610; 85730; 87635; 93005; 96360; 99285

== ENCOUNTER → 2021-12-14 | Outpatient (CLI) | payer MEDICARE ==
--- NOTE | 2021-12-14 11:00 | ECHOF ---
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 This was a technically good study. LV size, wall thickness and systolic function are normal, with an EF greater than 55%. The left ray tricular size is normal. The right ventricle is normal in size. LA is moderately dilated 34-39 ml/m2 The right atrial size is normal. The aortic valve is trileaflet, and appears structurally normal. No aortic stenosis or regurgitation. Mild mitral regurgitation is present. Mild tricuspid regurgitation present. Right ventricular systolic pressure is normal at < 35 mmHg. Trace/mild (physiologic) pulmonic regurgitation. There is no pericardial effusion. CONCLUSIONS -------- 1. LV size, wall thickness and systolic function are normal, with an EF greater than 55%. 2. The left ventricular size is normal. 3. The right ventricle is normal in size. 4. LA is moderately dilated 34-39 ml/m2 5. The right atrial size is normal. 6. The aortic valve is trileaflet, and appears structurally normal. No aortic stenosis or regurgitati on. 7. Mild mitral regurgitation is present. 8. Mild tricuspid regurgitation present. 9. Trace/mild (physiologic) pulmonic regurgitation. 10. There is no pericardial effusion. PATTERN[employer]KER ALL AROUND: Sophie Chau RDCS
== END | disposition home or self-care (01) ==
LOC: RADECHMAIN 08:14
PROVIDERS: ATTEND Family Medicine
DX: I08.1 Rheumatic disorders of both mitral and tricuspid valves (principal)
CPT/HCPCS: 93306

== ENCOUNTER 2022-05-05 13:55 | Emergency (ER) | payer MEDICARE ==
[2022-05-05 14:11] VITALS: RESP 18
[2022-05-05] MEDS ORDERED: ASPIRIN 81 MG PO STA (14:18)
[2022-05-05] MEDS ORDERED: NITROGLYCERIN OINT 1 INCH/GM PACKET TOPICAL STA (14:18)
[2022-05-05] MEDS ORDERED: LABETALOL 5 MG/ML VIAL MDV IVP STA (14:25)
[2022-05-05] MEDS ORDERED: lisinopriL 20 MG TAB PO STA (14:26)
--- NOTE | 2022-05-05 14:36 | ED ---
General Adult HPI - General Chief complaint: Recheck/Abnormal Lab/Rx Stated complaint: HBP 221/104, Transfer from Urgent Care Time Seen by Provider: 05/05/22 14:14 Source: patient Mode of arrival: ambulatory Limitations: no limitations - History of Present Illness Initial comments: Patient is a 76-year-old -[place] female presents to the emergency room at the direction of her primary care provider to the hypertensive urgency. She's reports that she went to her doctor's office today without taking her blood pressure medication prior to her appointment so that her doctor could see what her blood pressure was doing without her medications. She is typically on lisinopril twice a day 20 mg in addition to her metformin that she takes for her diabetes. She reports that she had a cardiovascular workup a few months ago however our records indicate that workup was in October 2020. Despite her elevated blood pressure overall she is feeling well. She denies any chest pain, shortness of breath, headache, blurred vision, double vision, dizziness, diaphoresis or lower extremity edema. In addition to her hypertension and diabetes she has past medical history significant for hyperlipidemia and arthritis. She denies any other complaints or concerns at this time. - Related Data Home Medications Medication Instructions Recorded Confirmed Cyanocobalamin [Vitamin B-12] 500 mcg PO DAILY 02/09/15 05/05/22 metFORMIN HCL [Glucophage] 1,000 mg PO BID 02/09/15 05/05/22 lisinopriL [Prinivil] 20 mg PO BID 02/14/18 05/05/22 Rosuvastatin Calcium [Crestor] 5 mg PO MOWEFR 10/06/20 05/05/22 Ascorbic Acid [Vitamin C] 500 mg PO DAILY 05/05/22 05/05/22 Cholecalciferol [Vitamin D3 (25 25 mcg PO DAILY 05/05/22 05/05/22 Mcg = 1000 Iu)] Latanoprost/Pf [Latanoprost 0.005% 1 drop BOTH EYES HS 05/05/22 05/05/22 Eye Drop] Phytonadione [Vitamin K] 5 mg PO DAILY 05/05/22 05/05/22 Allergies Allergy/AdvReac Type Severity Reaction Status Date / Time No Known Allergies Allergy Verified 05/05/22 15:43 Review of Systems ROS Statement: Those systems with pertinent positive or pertinent negative responses have been documented in the HPI. ROS Other: All systems not noted in ROS Statement are negative. Past Medical History Past Medical History: Diabetes Mellitus, Hyperlipidemia, Hypertension, Osteoarthritis (OA) Additional Past Medical History / Comment(s): HX: NIDDM, low WBC count which Dr told her is normal for her, heart murmur., States itching under breasts. History of Any Multi-Drug Resistant Organisms: MRSA Date of last positivie culture/infection: 06/25/18 MDRO Source:: Right Knee Past Surgical History: Breast Surgery Additional Past Surgical History / Comment(s): L breast bx, D&C for possible m iscarriage, colonoscopy Past Anesthesia/Blood Transfusion Reactions: No Reported Reaction Past Psychological History: No Psychological Hx Reported Smoking Status: Never smoker Past Alcohol Use History: None Reported Past Drug Use History: None Reported - Past Family History Father Additional Family Medical History / Comment(s): Pt does not know her father. Mother Family Medical History: Coronary Artery Disease (CAD), Diabetes Mellitus, Hypertension Additional Family Medical History / Comment(s): Mother at age 76yrs. She had an enlarged heart General Exam Limitations: no limitations Course Vital Signs 05/05/22 05/05/22 05/05/22 14:07 15:19 16:00 Pulse Rate 77 69 Respiratory 18 18 Rate Blood Pressure 235/101 190/91 148/93 O2 Sat by Pulse 100 99 Oximetry Medical Decision Making - Medical Decision Making Will workup with CBC, CMP, troponins, magnesium and chest x-ray. EKG sinus rhythm with PVCs and bundle-branch block as sinus rhythm with frequent PVCs as noted below. Currently chest pain-free any symptomatic of hypertensive urgency. We'll give IV labetalol by home oral dose of fosinopril. Will monitor response. Lab stable including negative troponin. Chest x-ray negative for acute cardiopulmonary disease. Patient continues to remain symptom-free. Responded well to oral lisinopril which is her home medication. No need for IV medication was discharged home on her home medications with follow-up with her primary care provider. Case discussed with Dr. Burt - Lab Data Result diagrams: 05/05/22 15:05 05/05/22 15:05 Lab Results 05/05/22 05/05/22 05/05/22 Range/Units 15:05 15:05 15:05 WBC 3.5 L (3.8-10.6) k/uL RBC 4.42 (3.80-5.40) m/uL Hgb 12.9 (11.4-16.0) gm/dL Hct 39.5 (34.0-46.0) % MCV 89.4 (80.0-100.0) fL MCH 29.1 (25.0-35.0) pg MCHC 32.6 (31.0-37.0) g/dL RDW 13.0 (11.5-15.5) % Plt Count 193 (150-450) k/uL MPV 7.7 Neutrophils % 51 % Lymphocytes % 36 % Monocytes % 5 % Eosinophils % 5 % Basophils % 1 % Neutrophils # 1.8 (1.3-7.7) k/uL Lymphocytes # 1.3 (1.0-4.8) k/uL Monocytes # 0.2 (0-1.0) k/uL Eosinophils # 0.2 (0-0.7) k/uL Basophils # 0.0 (0-0.2) k/uL PT 10.6 (9.0-12.0) sec INR 1.0 (<1.2) APTT 22.9 (22.0-30.0) sec Sodium 141 (137-145) mmol/L Potassium 4.1 (3.5-5.1) mmol/L Chloride 109 H (98-107) mmol/L Carbon Dioxide 25 (22-30) mmol/L Anion Gap 7 mmol/L BUN 17 (7-17) mg/dL Creatinine 1.04 (0.52-1.04) mg/dL Est GFR (CKD-EPI)AfAm 61 (>60 ml/min/1.73 sqM) Est GFR (CKD-EPI)NonAf 53 (>60 ml/min/1.73 sqM) Glucose 150 H (74-99) mg/dL Calcium 9.0 (8.4-10.2) mg/dL Magnesium 1.6 (1.6-2.3) mg/dL Total Bilirubin 0.3 (0.2-1.3) mg/dL AST 25 (14-36) U/L ALT 14 (4-34) U/L Alkaline Phosphatase 56 (38-126) U/L Troponin I (0.000-0.034) ng/mL Total Protein 6.8 (6.3-8.2) g/dL Albumin 4.3 (3.5-5.0) g/dL 05/05/22 Range/Units 15:05 WBC (3.8-10.6) k/uL RBC (3.80-5.40) m/uL Hgb (11.4-16.0) gm/dL Hct (34.0-46.0) % MCV (80.0-100.0) fL MCH (25.0-35.0) pg MCHC (31.0-37.0) g/dL RDW (11.5-15.5) % Plt Count (150-450) k/uL MPV Neutrophils % % Lymphocytes % % Monocytes % % Eosinophils % % Basophils % % Neutrophils # (1.3-7.7) k/uL Lymphocytes # (1.0-4.8) k/uL Monocytes # (0-1.0) k/uL Eosinophils # (0-0.7) k/uL Basophils # (0-0.2) k/uL PT (9.0-12.0) sec INR (<1.2) APTT (22.0-30.0) sec Sodium (137-145) mmol/L Potassium (3.5-5.1) mmol/L Chloride (98-107) mmol/L Carbon Dioxide (22-30) mmol/L Anion Gap mmol/L BUN (7-17) mg/dL Creatinine (0.52-1.04) mg/dL Est GFR (CKD-EPI)AfAm (>60 ml/min/1.73 sqM) Est GFR (CKD-EPI)NonAf (>60 ml/min/1.73 sqM) Glucose (74-99) mg/dL Calcium (8.4-10.2) mg/dL Magnesium (1.6-2.3) mg/dL Total Bilirubin (0.2-1.3) mg/dL AST (14-36) U/L ALT (4-34) U/L Alkaline Phosphatase (38-126) U/L Troponin I <0.012 (0.000-0.034) ng/mL Total Protein (6.3-8.2) g/dL Albumin (3.5-5.0) g/dL - EKG Data EKG Comments: Sinus rhythm with frequent ventricular premature complexes and right bundle- branch block, ventricular rate 78 bpm, SC interval 192 ms, QRS duration 131 ms, QT/QTc 381/450 ms, PRT axes 55, -49 -11 When compared to previous EKG there are: no significant change - Radiology Data Radiology results: report reviewed, image reviewed Chest x-ray negative for acute cardiopulmonary processes Disposition Clinical Impression: HTN (hypertension) Disposition: HOME SELF-CARE Condition: Stable Instructions (If sedation given, give patient instructions): Hypertension (ED) Additional Instructions: Please take your blood pressure medication as prescribed. Recommend monitoring her blood pressure at home. Please return to the Emergency Department if symptoms worsen or any other concerns. Is patient prescribed a controlled substance at d/c from ED?: No Referrals: Miquel Allen DO [Primary Care Provider] - 1-2 days Forms: Work/School Release Time of Disposition: 16:35
--- NOTE | 2022-05-05 14:43 | XR ---
EXAMINATION TYPE: XR chest 2V DATE OF EXAM: 05/05/2022 COMPARISON: 10/06/2020 HISTORY: Shortness of breath TECHNIQUE: Frontal and lateral views of the chest are obtained. FINDINGS: Scattered senescent parenchymal changes noted. Hyperinflation compatible with COPD. No evidence for infiltrate. No evidence for atelectasis. Heart size is stable. Mediastinal structures are stable and grossly unremarkable. No evidence for hilar prominence. Degenerative changes dorsal spine. IMPRESSION: 1. No evidence for acute pulmonary disease.
[2022-05-05 15:28] LABS: Basophils % (A) 1 %; Eosinophils # (A) 0.2 k/uL (0-0.7); Eosinophils % (A) 5 %; HCT 39.5 % (34.0-46.0); HGB 12.9 gm/dL (11.4-16.0); Lymphocytes # (A) 1.3 k/uL (1.0-4.8); Lymphocytes % (A) 36 %; MCH 29.1 pg (25.0-35.0); MCHC 32.6 g/dL (31.0-37.0); MCV 89.4 fL (80.0-100.0); Mean Platelet Volume 7.7; Monocytes # (A) 0.2 k/uL (0-1.0); Monocytes % (A) 5 %; Neutrophils # (A) 1.8 k/uL (1.3-7.7); Neutrophils % (A) 51 %; Platelet Count 193 k/uL (150-450); RBC 4.42 m/uL (3.80-5.40); WBC 3.5 k/uL (3.8-10.6)
[2022-05-05 15:37] LABS: Albumin 4.3 g/dL (3.5-5.0); Magnesium 1.6 mg/dL (1.6-2.3); Potassium 4.1 mmol/L (3.5-5.1); Total Bilirubin 0.3 mg/dL (0.2-1.3); Total Protein 6.8 g/dL (6.3-8.2)
[2022-05-05 15:40] LABS: Partial Thromboplastin Time 22.9 sec (22.0-30.0); Prothrombin Time 10.6 sec (9.0-12.0)
[2022-05-05 17:08] VITALS: BP 142/84; PULSE 68
== END 2022-05-05 17:14 | disposition home or self-care (01) ==
LOC: EC 13:55
DX: I10 Essential (primary) hypertension (principal); E78.5 Hyperlipidemia, unspecified; E11.9 Type 2 diabetes mellitus without complications
CPT/HCPCS: 36415; 71046; 80053; 83735; 84484; 85025; 85610; 85730; 93005

== ENCOUNTER → 2023-02-27 | Outpatient (CLI) | payer MEDICARE ==
--- NOTE | 2023-02-28 19:25 | MM ---
Reason for Exam: Screening (asymptomatic). Last mammogram was performed 1 year(s) and 3 month(s) ago. Patient History: Menarche at age 14. First Full-Term at age 20. Postmenopausal. Patient has history of breast feeding. Hormonal Contraceptives for 4 months starting at age 18. Excisional Biopsy on the Left side. Risk Values: Stephanie 5 year model risk: 1.5%. NCI Lifetime model risk: 3.3%. Prior Study Comparison: 01/02/2019 Bilateral Diagnostic Mammogram, [facility]. 09/04/2020 Bilateral Screening Mammogram, [facility]. 11/09/2021 Bilateral Screening Mammogram, [facility]. Tissue Density: The breast tissue is heterogeneously dense. This may lower the sensitivity of mammography. Findings: Analyzed By CAD. Subareolar asymmetric density right MLO view just above the retroareolar plane appears more defined and incompletely disperses on 3-D images. Further on compression views are recommended. Otherwise, no significant change. Overall Assessment: Incomplete: need additional imaging evaluation, BI-RAD 0 Management: Special View Mammogram of the right breast. For the subareolar asymmetric density right MLO view. [facility] will attempt to contact patient to return for supplemental views and ultrasound if indicated. Electronically signed and approved by: Louis Braun M.D. Radiologist
== END | disposition home or self-care (01) ==
LOC: RADMAMWWP 16:22
PROVIDERS: ATTEND Family Medicine
DX: Z12.31 Encounter for screening mammogram for malignant neoplasm of breast (principal); Z78.0 Asymptomatic menopausal state; Z98.890 Other specified postprocedural states
CPT/HCPCS: 77063; 77067

== ENCOUNTER → 2023-05-11 | Outpatient (CLI) | payer MEDICARE ==
--- NOTE | 2023-05-11 10:34 | MM ---
Reason for Exam: Additional evaluation requested from abnormal screening. Last screening mammogram was performed 3 month(s) ago. Patient History: Menarche at age 14. First Full-Term at age 20. Postmenopausal. Patient has history of breast feeding. Hormonal Contraceptives for 4 months starting at age 18. Excisional Biopsy on the Left side. Risk Values: Stephanie 5 year model risk: 1.8%. NCI Lifetime model risk: 3.7%. Prior Study Comparison: 09/03/2012 Bilateral Screening Mammogram, [facility]. 10/15/2014 Bilateral Screening Mammogram, [facility]. 12/08/2015 Bilateral Screening Mammogram, [facility]. 12/16/2015 Left Diagnostic Mammogram, [facility]. 10/11/2017 Bilateral Screening Mammogram, [facility]. 10/26/2017 Left Diagnostic Ultrasound, [facility]. 01/02/2019 Bilateral Diagnostic Mammogram, [facility]. 01/02/2019 Left Diagnostic Ultrasound, [facility]. 09/04/2020 Bilateral Screening Mammogram, [facility]. 11/09/2021 Bilateral Screening Mammogram, [facility]. 02/27/2023 Bilateral MG 3D screening mammo w/cad, [facility]. Tissue Density: Right: The breast tissue is heterogeneously dense. This may lower the sensitivity of mammography. Findings: Analyzed By CAD. There is an persistent oval circumscribed 1 cm mass in the retroareolar region of the right breast. No suspicious calcifications. Overall Assessment: Incomplete: need additional imaging evaluation, BI-RAD 0 Management: Diagnostic Breast Ultrasound of the right breast. A clinical breast exam by your physician is recommended on an annual basis and results should be correlated with mammographic findings. This exam should not preclude additional follow-up of suspicious palpable abnormalities. Results were given to the patient verbally at the time of exam. Note on Stephanie scores and lifetime risk: 1. A Stephanie score greater than 3% is considered moderate risk. If this is the case, consider specialist referral to assess eligibility for a risk reducing agent. If overall lifetime risk for the development of breast cancer is 20% or higher, the patient may qualify for future screening with alternating mammogram and breast MRI. Electronically signed and approved by: Antoni Steven D.O.
--- NOTE | 2023-05-11 10:55 | USB ---
Patient History: Menarche at age 14. First Full-Term at age 20. Postmenopausal. Patient has history of breast feeding. Hormonal Contraceptives for 4 months starting at age 18. Excisional Biopsy on the Left side. Risk Values: Stephanie 5 year model risk: 1.8%. NCI Lifetime model risk: 3.7%. Technique: Method: Targeted. Prior Study Comparison: 09/04/2020 Bilateral Screening Mammogram, [facility]. 11/09/2021 Bilateral Screening Mammogram, [facility]. 02/27/2023 Bilateral MG 3D screening mammo w/cad, [facility]. Findings: The periareolar of the left breast, the axilla of the left breast and the retroareolar of the left breast were scanned. Targeted ultrasound of the right breast in the nipple and periareolar region with additional evaluation of the axilla was performed. There is ductal ectasia which corresponds to mammographic finding. No internal debris or masses identified within the ducts. Overall Assessment: Benign, BI-RAD 2 Management: Screening Mammogram of both breasts in 6 months. A clinical breast exam by your physician is recommended on an annual basis and results should be correlated with mammographic findings. This exam should not preclude additional follow-up of suspicious palpable abnormalities. Results were given to the patient verbally at the time of exam. Electronically signed and approved by: Antoni Steven D.O.
== END | disposition home or self-care (01) ==
LOC: RADMAMWWP 10:09
PROVIDERS: ATTEND Family Medicine
DX: R92.8 Other abnormal and inconclusive findings on diagnostic imaging of breast (principal); Z78.0 Asymptomatic menopausal state
CPT/HCPCS: 77061; 77065

== ENCOUNTER 2024-02-06 14:56 | Inpatient (IN) | payer MEDICARE ==
[2024-02-06 16:19] LABS: Basophils % (A) 0 %; Eosinophils # (A) 0.3 k/uL (0-0.7); Eosinophils % (A) 5 %; HCT 37.9 % (34.0-46.0); HGB 12.6 gm/dL (11.4-16.0); Lymphocytes # (A) 1.2 k/uL (1.0-4.8); Lymphocytes % (A) 21 %; MCH 29.7 pg (25.0-35.0); MCHC 33.4 g/dL (31.0-37.0); MCV 88.9 fL (80.0-100.0); Mean Platelet Volume 7.6; Monocytes # (A) 0.2 k/uL (0-1.0); Monocytes % (A) 4 %; Neutrophils # (A) 3.9 k/uL (1.3-7.7); Neutrophils % (A) 68 %; Platelet Count 196 k/uL (150-450); RBC 4.26 m/uL (3.80-5.40); RDW 13.3 % (11.5-15.5); WBC 5.7 k/uL (3.8-10.6)
--- NOTE | 2024-02-06 16:29 | ED ---
Abdominal Pain HPI - General Chief Complaint: Abdominal Pain Stated Complaint: Right Side Pain Time Seen by Provider: 02/06/24 15:36 Source: patient, family, RN notes reviewed, old records reviewed Mode of arrival: ambulatory Limitations: no limitations - History of Present Illness Initial Comments: This is a 78-year-old female to the ER for evaluation abdominal pain right-sided abdominal pain epigastric abdominal pain pain to her back. Pain is persistent here in the emergency department with nausea no vomiting no fevers no chills no sick contacts patient has been dealing with this pain on and off for a year and it is worse today. Patient has history of colonoscopy normal, prior imaging has all been normal she has been evaluated in the emergency room by her technical services manager Complaint: abdominal pain -: days(s) Location: diffuse, RUQ Radiation: back Migration to: RLQ, epigastric, bilateral flank Severity: moderate Quality: cramping, aching Consistency: constant Improves With: nothing Worsens With: nothing Associated Symptoms: nausea Treatments Prior to Arrival: other (0) - Related Data Home Medications Medication Instructions Recorded Confirmed metFORMIN HCL [Glucophage] 1,000 mg PO BID 02/09/15 02/06/24 lisinopriL [Prinivil] 20 mg PO BID 02/14/18 02/06/24 Bimatoprost [Lumigan 0.01% Ophth 1 drop BOTH EYES HS 02/06/24 02/06/24 Soln] Vitamin B-12(Unknown Dose) 1 tab PO DAILY 02/06/24 02/06/24 Vitamin C(Unknown Dose) 1 tab PO DAILY 02/06/24 02/06/24 Vitamin D3(Unknown Dose) 1 tab PO DAILY 02/06/24 02/06/24 amLODIPine [Norvasc] 5 mg PO HS 02/06/24 02/06/24 Previous Rx's Medication Instructions Recorded Dicyclomine [Bentyl] 10 mg PO TID PRN #30 capsule 02/09/24 Allergies Allergy/AdvReac Type Severity Reaction Status Date / Time No Known Allergies Allergy Verified 02/06/24 18:28 Review of Systems ROS Statement: Those systems with pertinent positive or pertinent negative responses have been documented in the HPI. ROS Other: All systems not noted in ROS Statement are negative. Past Medical History Past Medical History: Diabetes Mellitus, Hyperlipidemia, Hypertension, Osteoarthritis (OA) Additional Past Medical History / Comment(s): HX: NIDDM, low WBC count which Dr told her is normal for her, heart murmur., States itching under breasts. History of Any Multi-Drug Resistant Organisms: MRSA Date of last positivie culture/infection: 06/25/18 MDRO Source:: Right Knee Past Surgical History: Breast Surgery Additional Past Surgical History / Comment(s): L breast bx, D&C for possible miscarriage, colonoscopy Past Anesthesia/Blood Transfusion Reactions: No Reported Reaction Past Psychological History: No Psychological Hx Reported Smoking Status: Never smoker Past Alcohol Use History: None Reported Past Drug Use History: None Reported - Past Family History Father Additional Family Medical History / Comment(s): Pt does not know her father. Mother Family Medical History: Coronary Artery Disease (CAD), Diabetes Mellitus, Hypert ension Additional Family Medical History / Comment(s): Mother at age 76yrs. She had an enlarged heart General Exam Limitations: no limitations General appearance: alert, in no apparent distress Head exam: Present: atraumatic, normocephalic, normal inspection Eye exam: Present: normal appearance, PERRL, EOMI. Absent: scleral icterus, conjunctival injection, periorbital swelling ENT exam: Present: normal exam, mucous membranes moist Neck exam: Present: normal inspection. Absent: tenderness, meningismus, lymphadenopathy Respiratory exam: Present: normal lung sounds bilaterally. Absent: respiratory distress, wheezes, rales, rhonchi, stridor Cardiovascular Exam: Present: regular rate, normal rhythm, normal heart sounds. Absent: systolic murmur, diastolic murmur, rubs, gallop, clicks GI/Abdominal exam: Present: soft, normal bowel sounds. Absent: distended, tenderness, guarding, rebound, rigid Extremities exam: Present: normal inspection, full ROM, normal capillary refill. Absent: tenderness, pedal edema, joint swelling, calf tenderness Back exam: Present: normal inspection Neurological exam: Present: alert, oriented X3, CN II-XII intact Psychiatric exam: Present: normal affect, normal mood Skin exam: Present: warm, dry, intact, normal color. Absent: rash Course Vital Signs 02/06/24 02/06/24 02/06/24 15:29 18:09 19:24 Temperature 98.4 F 98.7 F Pulse Rate 97 76 70 Respiratory 20 17 16 Rate Blood Pressure 157/82 169/84 164/94 O2 Sat by Pulse 98 96 96 Oximetry 02/06/24 02/06/24 02/06/24 20:30 21:30 22:50 Temperature 97.7 F Pulse Rate 72 69 72 Respiratory 16 16 16 Rate Blood Pressure 156/81 149/82 132/81 O2 Sat by Pulse 97 95 98 Oximetry 02/07/24 02/07/24 02/07/24 00:30 04:22 06:28 Temperature Pulse Rate 73 75 61 Respiratory 13 16 14 Rate Blood Pressure 143/76 140/74 O2 Sat by Pulse 96 99 95 Oximetry - Reevaluation(s) Reevaluation #1: 02/06/24 17:22 Medical records reviewed Reevaluation #2: 02/06/24 17:23 Patient's symptoms improved Reevaluation #3: 02/06/24 17:23 Patient informed of results questions answered Reevaluation #4: Was pt. sent in by a medical professional or institution (, PA, GATE PERSON, urgent care, hospital, or [facility]...) When possible be specific @ -no Did you speak to anyone other than the patient for history (EMS, parent, family, police, friend...)? What history was obtained from this source @ -no Did you review nursing and triage notes (agree or disagree)? Why? @ -agree Are old charts reviewed (outside hosp., previous admission, EMS record, old EKG, old radiological studies, urgent care reports/EKG's, [facility] records)? Report findings @ -yes Differential Diagnosis (chest pain, altered mental status, abdominal pain women, abdominal pain men, vaginal bleeding, weakness, fever, dyspnea, syncope, headache, dizziness, GI bleed, back pain, seizure, CVA, palpatations, mental hea lth, musculoskeletal)? @ -prior EKG interpreted by me (3pts min.). @ -yes X-rays interpreted by me (1pt min.). @ -no CT interpreted by me (1pt min.). @ -yes negative for acute disease U/S interpreted by me (1pt. min.). @ -no What testing was considered but not performed or refused? (CT, X-rays, U/S, labs)? Why? @ -none What meds were considered but not given or refused? Why? @ -none Did you discuss the management of the patient with other professionals (professionals i.e. , PA, GATE PERSON, lab, RT, psych nurse, social work program coordinator, sanipractic physician, teacher, contract officer, case reviewer)? Give summary @ -no Was smoking cessation discussed for >3mins.? @ -no Was critical care preformed (if so, how long)? @ -no Were there social determinants of health that impacted care today? How? (Homelessness, low income, unemployed, alcoholism, drug addiction, transportation, low edu. Level, literacy, decrease access to med. care, group home, rehab)? @ -none Was there de-escalation of care discussed even if they declined (Discuss DNR or withdrawal of care, Hospice)? DNR status @ -no What co-morbidities impacted this encounter? (DM, HTN, Smoking, COPD, CAD, Cancer, CVA, ARF, Chemo, Hep., AIDS, mental health diagnosis, sleep apnea, morbid obesity)? @ -none Was patient admitted / discharged? Hospital course, mention meds given and route, prescriptions, significant lab abnormalities, going to OR and other per tinent info. @ - 78 female to the ER for evaluation today. Patient presents today for evaluation regards to abdominal pain. Patient presents with persistent abdominal pain and nausea here in the ER patient is found to have significant stool burden urinary tract infection and concern for worsening abdominal pain and distention Admitted Undiagnosed new problem with uncertain prognosis? @ -no Drug Therapy requiring intensive monitoring for toxicity (Heparin, Nitro, Insulin, Cardizem)? @ -no Were any procedures done? @ -no Diagnosis/symptom? @ -Abdominal pain with constipation Acute, or Chronic, or Acute on Chronic? @ -Acute Uncomplicated (without systemic symptoms) or Complicated (systemic symptoms)? @ -Complicated Side effects of treatment? @ -no Exacerbation, Progression, or Severe Exacerbation? @ -exacerbation Poses a threat to life or bodily function? How? (Chest pain, [place], [place], pneumonia, PE, COPD, DKA, ARF, appy, cholecystitis, CVA, Diverticulitis, Homicidal, Suicidal, threat to staff... and all critical care pts) @ -yes with extremes of age Reevaluation #5: Differential Abdominal Pain Women: Appendicitis, Cholecystitis, diverticulosis, ischemic bowel, pancreatitis, hepatitis, UTI, gastroenteritis, AAA, incarcerated hernia, bowel obstruction, constipation, inflammatory bowel, hepatitis, peptic ulcer disease, splenic infarction, perforated viscus, vulvitis, ovarian torsion, PID, kidney stone, placenta abruption, this is not meant to be an all-inclusive list - Consultations Consultation #1: Spoke with Dr. Jordan who will admit the patient Medical Decision Making - Medical Decision Making 78 female to the ER for evaluation today. Patient presents today for evaluation regards to abdominal pain. Patient presents with persistent abdominal pain and nausea here in the ER patient is found to have significant stool burden urinary tract infection and concern for worsening abdominal pain and distention - Lab Data Result diagrams: 02/07/24 06:00 02/07/24 06:00 Lab Results 02/06/24 02/06/24 02/06/24 Range/Units 16:07 16:07 16:50 WBC 5.7 (3.8-10.6) k/uL RBC 4.26 (3.80-5.40) m/uL Hgb 12.6 (11.4-16.0) gm/dL Hct 37.9 (34.0-46.0) % MCV 88.9 (80.0-100.0) fL MCH 29.7 (25.0-35.0) pg MCHC 33.4 (31.0-37.0) g/dL RDW 13.3 (11.5-15.5) % Plt Count 196 (150-450) k/uL MPV 7.6 Neutrophils % 68 % Lymphocytes % 21 % Monocytes % 4 % Eosinophils % 5 % Basophils % 0 % Neutrophils # 3.9 (1.3-7.7) k/uL Lymphocytes # 1.2 (1.0-4.8) k/uL Monocytes # 0.2 (0-1.0) k/uL Eosinophils # 0.3 (0-0.7) k/uL Basophils # 0.0 (0-0.2) k/uL Sodium 138 (137-145) mmol/L Potassium 4.4 (3.5-5.1) mmol/L Chloride 104 (98-107) mmol/L Carbon Dioxide 26 (22-30) mmol/L Anion Gap 8 mmol/L BUN 9 (7-17) mg/dL Creatinine 0.74 (0.52-1.04) mg/dL Est GFR (CKD-EPI)AfAm >90 (>60 ml/min/1.73 sqM) Est GFR (CKD-EPI)NonAf 80 (>60 ml/min/1.73 sqM) Glucose 235 H (74-99) mg/dL Calcium 9.3 (8.4-10.2) mg/dL Phosphorus 3.1 (2.5-4.5) mg/dL Magnesium 1.5 L (1.6-2.3) mg/dL Total Bilirubin 0.5 (0.2-1.3) mg/dL AST 17 (14-36) U/L ALT 13 (4-34) U/L Alkaline Phosphatase 67 (38-126) U/L Total Protein 6.7 (6.3-8.2) g/dL Albumin 3.8 (3.5-5.0) g/dL Amylase 70 (30-110) U/L Lipase 72 (23-300) U/L Urine Color Light Yellow Urine Appearance Cloudy H (Clear) Urine pH 5.5 (5.0-8.0) Ur Specific Soper 1.018 (1.001-1.035) Urine Protein Negative (Negative) Urine Glucose (UA) Negative (Negative) Urine Ketones Negative (Negative) Urine Blood Negative (Negative) Urine Nitrite Negative (Negative) Urine Bilirubin Negative (Negative) Urine Urobilinogen <2.0 (<2.0) mg/dL Ur Leukocyte Esterase Large H (Negative) Urine RBC 1 (0-5) /hpf Urine WBC 20 H (0-5) /hpf Ur Squamous Epith Cells 5 H (0-4) /hpf Urine Bacteria Rare H (None) /hpf Urine Mucus Moderate H (None) /hpf - Radiology Data Radiology results: report reviewed (CT abdomen pelvis is negative for acute disease), image reviewed Disposition Clinical Impression: Atypical chest pain, Abdominal pain, Constipation, UTI (urinary tract infection) Disposition: ADMITTED IP TO THIS HOSP Is patient prescribed a controlled substance at d/c from ED?: No Time of Disposition: 17:20
[2024-02-06 16:31] LABS: ALT 13 U/L (4-34); AST 17 U/L (14-36); African American GFR (CKD) >90 (>60 ml/min/1.73 sqM); Albumin 3.8 g/dL (3.5-5.0); Alkaline Phosphatase 67 U/L (38-126); Amylase 70 U/L (30-110); Anion Gap 8 mmol/L; Blood Urea Nitrogen 9 mg/dL (7-17); Calcium 9.3 mg/dL (8.4-10.2); Carbon Dioxide 26 mmol/L (22-30); Chloride 104 mmol/L (98-107); Glucose 235 mg/dL (74-99); Lipase 72 U/L (23-300); Magnesium 1.5 mg/dL (1.6-2.3); Non-African American GFR(CKD) 80 (>60 ml/min/1.73 sqM); Phosphorus 3.1 mg/dL (2.5-4.5); Potassium 4.4 mmol/L (3.5-5.1); Sodium 138 mmol/L (137-145); Total Bilirubin 0.5 mg/dL (0.2-1.3); Total Protein 6.7 g/dL (6.3-8.2)
[2024-02-06] MEDS: MORPHINE SULFATE 4 MG/ML SYRINGE IVP STA (16:32)
[2024-02-06] MEDS: KETOROLAC 15 MG/ML 1 ML VIAL IVP STA (16:34)
[2024-02-06] MEDS: SODIUM CHLORIDE 0.9% 1,000 ML IV STA (16:37)
[2024-02-06 17:10] LABS: Appearance,Urine Cloudy (Clear); Bacteria,Urine Rare /hpf; Bilirubin,Urine Negative (Negative); Blood,Urine Negative (Negative); Color,Urine Light Yellow; Glucose,Urine (UA) Negative (Negative); Ketones,Urine Negative (Negative); Leukocyte Esterase,Urine Large (Negative); Mucus,Urine Moderate /hpf; Nitrite,Urine Negative (Negative); PH, Urine 5.5 (5.0-8.0); Protein,Urine Negative (Negative); RBC,Urine 1 /hpf (0-5); Specific Gravity,Urine 1.018 (1.001-1.035); Squamous Epithelial Cell,Urine 5 /hpf (0-4); Urobilinogen,Urine <2.0 mg/dL (<2.0); WBC,Urine 20 /hpf (0-5)
--- NOTE | 2024-02-06 17:12 | CT ---
EXAMINATION TYPE: CT abdomen pelvis w con DATE OF EXAM: 02/06/2024 COMPARISON: 01/06/2019 HISTORY: right side abd pain, radiates to back CT DLP: 931.8 mGycm CONTRAST: CT scan of the abdomen and pelvis is performed without Oral Contrast and with IV Contrast, patient in jected with 100 ml mL of Isovue 300. FINDINGS: LUNG BASES-: No visible nodule. No infiltrate. LIVER/GB: No calcified gallstones. No space occupying hepatic lesion. Biliary tree is of normal ca liber. PANCREAS: No inflammation. No distinct mass. SPLEEN: No splenic enlargement. No lesion seen. ADRENALS: No nodule. No thickening. KIDNEYS/BLADDER: No hydronephrosis. No nephrolithiasis. No distinct renal mass. Urinary bladder g rossly unremarkable. BOWEL: Colonic distention extending from the cecum through the mid descending colon where there is an area of focal narrowing which could be related to spasm however neoplasm is not excluded. Consider d irect visualization. This is seen best on coronal image 68 of 125. There is moderate fecal stasis not ed within the right hemicolon. No definite evidence for colitis or diverticulitis. Portions of the vi sualized appendix appear within normal limits. GENITAL ORGANS: Uterine calcifications noted which may reflect small leiomyomatous change. Small left follicular cyst measures 1.2 cm. Small bowel is of normal caliber. No free air or abscess seen. LYMPH NODES: No greater than 1cm abdominal or pelvic lymph nodes are appreciated. AORTA: No significant abnormality. OSSEOUS STRUCTURES: No significant abnormality is seen. OTHER: No significant additional abnormality is seen. IMPRESSION: 1. Colonic distention extending from the cecum through the mid descending colon where there is an are a of focal narrowing which could be related to spasm however neoplasm is not excluded. Consider direc t visualization. 2. Moderate fecal stasis as noted.
[2024-02-06] MEDS: ONDANSETRON 4 MG/2 ML VIAL IVP STA (18:00)
[2024-02-06] MEDS ORDERED: NALOXONE 0.4 MG/ML 1 ML VIAL IV PRN (18:06)
[2024-02-06] MEDS ORDERED: ONDANSETRON 4 MG/2 ML VIAL IVP PRN (18:06)
[2024-02-06] MEDS: SODIUM CHLORIDE 0.9% 1,000 ML IV SCH (18:54)
[2024-02-06] MEDS ORDERED: DEXTROSE 50% SYRINGE 50 ML IVP PRN ×2 (22:18)
--- NOTE | 2024-02-06 22:21 | P.HPIM ---
History of Present Illness H&P Date: 02/06/24 Chief Complaint: Abdominal pain This is a 78-year-old patient who follows with Dr. Allen. Chronic stable medical conditions include diabetes, hyperlipidemia, hypertension, osteoarthritis, chronically low WBC count,. Patient back in August 2023 started off with some right-sided intermittent abdominal pain. Then saw her family doctor. The following months. Initial workup was negative. Subsequently symptoms went to the left side to patient went to [facility] as her daughter works there. She underwent ultrasound and CT scan abdomen and other testing that was reportedly negative. Patient is continue to have pain since then. No nausea vomiting. Appetite is fair. Has lost about 2 to 3 pounds. Decided to come in. Patient is accompanied by her in the ER. 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 . Patient smoked all on and off as a teenager and smoked one third a pack a day stopped in 2009. No alcohol. Physical examination: VITAL SIGNS: 98.7, 69, 16, 149 x 82, 95% room air GENERAL: BMI 29.3, reclining bed awake not in distress. EYES: Pupils equal. Conjunctiva amilcar l. HEENT: External appearance of nose and ears normal, oral cavity grossly normal. NECK: JVD not raised; masses not palpable. HEART: First and second heart sounds are normal; no edema. LUNGS: Respiratory rate normal; clear with some decreased breath sounds. ABDOMEN: Soft, nontender, liver spleen not palpable, no masses palpable. PSYCH: Alert and oriented x3; mood and affect amilcar l. MUSCULOSKELETAL:No Clubbing/cyanosis;muscles-grossly intact NEUROLOGICAL: Cranial nerves grossly intact; no facial asymmetry, power and sensation grossly intact. LYMPHATICS: No lymph nodes palpable in the axilla and nec INVESTIGATIONS, reviewed in the clinical context: February 06, 2024: White count 5.7 hemoglobin 12.6 platelets 196 sodium 138 potassium 4.4 creatinine 0.74 glucose [address] scan abdomen pelvis with contrast: Colonic distention extending from the cecum through the mid descending colon where there is an area of focal narrowing. Neoplasm is not excluded. Moderate fecal stasis. In the right hemicolon Assessment plan: -This is a patient who presents with abdominal pain started in August 2023 initially on the right side and on both sides. Symptoms of gotten worse. Patient had a workup at [facility] back in November of this year that was unremarkable. Now presents with worsening symptoms. Patient is found to have focal narrowing on the left colon. Patient is been made NPO. For medications. General surgery consulted. Patient need a colonoscopy. -Essential hypertension Prinivil 20 mg twice daily. Amlodipine 5 mg nightly -Diabetes mellitus type 2 on oral hypoglycemic Hold metformin. Accu-Cheks with sliding scale insulin Care was discussed with the patient at the bedside. Questions answered. Past Medical History Past Medical History: Diabetes Mellitus, Hyperlipidemia, Hypertension, Osteoarthritis (OA) Additional Past Medical History / Comment(s): HX: NIDDM, low WBC count which Dr told her is normal for her, heart murmur., States itching under breasts. History of Any Multi-Drug Resistant Organisms: MRSA Date of last positivie culture/infection: 06/25/18 MDRO Source:: Right Knee Past Surgical History: Breast Surgery Additional Past Surgical History / Comment(s): L breast bx, D&C for possible miscarriage, colonoscopy Past Anesthesia/Blood Transfusion Reactions: No Reported Reaction Past Psychological History: No Psychological Hx Reported Smoking Status: Never smoker Past Alcohol Use History: None Reported Past Drug Use History: None Reported - Past Family History Father Additional Family Medical History / Comment(s): Pt does not know her father. Mother Family Medical History: Coronary Artery Disease (CAD), Diabetes Mellitus, Hypertension Additional Family Medical History / Comment(s): Mother at age 76yrs. She had an enlarged heart Medications and Allergies Home Medications Medication Instructions Recorded Confirmed Type metFORMIN HCL [Glucophage] 1,000 mg PO BID 02/09/15 02/06/24 History lisinopriL [Prinivil] 20 mg PO BID 02/14/18 02/06/24 History Bimatoprost [Lumigan 0.01% Ophth 1 drop BOTH EYES HS 02/06/24 02/06/24 History Soln] Vitamin B-12(Unknown Dose) 1 tab PO DAILY 02/06/24 02/06/24 History Vitamin C(Unknown Dose) 1 tab PO DAILY 02/06/24 02/06/24 History Vitamin D3(Unknown Dose) 1 tab PO DAILY 02/06/24 02/06/24 History amLODIPine [Norvasc] 5 mg PO HS 02/06/24 02/06/24 History Allergies Allergy/AdvReac Type Severity Reaction Status Date / Time No Known Allergies Allergy Verified 02/06/24 18:28 Physical Exam Vitals: Vital Signs Temp Pulse Resp BP Pulse Ox 02/06/24 21:30 69 16 149/82 95 02/06/24 20:30 72 16 156/81 97 02/06/24 19:24 70 16 164/94 96 02/06/24 18:09 98.7 F 76 17 169/84 96 02/06/24 15:29 98.4 F 97 20 157/82 98 Intake and Output 02/06/24 02/06/24 02/06/24 06:59 14:59 22:59 Other: Weight 72.575 kg Results CBC & Chem 7: 02/06/24 16:07 02/06/24 16:07 Labs: Abnormal Lab Results - Last 24 Hours (Table) 02/06/24 02/06/24 Range/Units 16:07 16:50 Glucose 235 H (74-99) mg/dL Magnesium 1.5 L (1.6-2.3) mg/dL Urine Appearance Cloudy H (Clear) Ur Leukocyte Esterase Large H (Negative) Urine WBC 20 H (0-5) /hpf Ur Squamous Epith Cells 5 H (0-4) /hpf Urine Bacteria Rare H (None) /hpf Urine Mucus Moderate H (None) /hpf
[2024-02-06] MEDS: amLODIPine 5 MG TAB PO SCH (22:46)
[2024-02-06] MEDS: lisinopriL 20 MG TAB PO SCH (22:46)
[2024-02-06] MEDS: LATANOPROST 0.005% OPHTH DROPS 2.5 ML BTL BOTH EYES SCH (22:47)
[2024-02-06] MEDS: ENOXAPARIN 40 MG/0.4 ML SYRINGE SQ SCH (22:48)
--- NOTE | 2024-02-07 07:06 | XR ---
EXAMINATION TYPE: XR chest 2V DATE OF EXAM: 02/07/2024 COMPARISON: 05/05/2022 INDICATION: History of smoking TECHNIQUE: Frontal and lateral views of the chest are obtained. FINDINGS: The heart size is normal. The pulmonary vasculature is normal. The lungs are clear. Spondylosis thoracic spine. IMPRESSION: 1. No acute pulmonary process.
[2024-02-07 07:44] LABS: Glucose,Whole Blood 183 mg/dL (70-110)
[2024-02-07] MEDS: INSULIN ASPART (NovoLOG) 100 UNIT/ML VIAL SQ SCH (07:47)
[2024-02-07] MEDS: MAGNESIUM SULFATE-D5W PMX 1 GM in DEXTROSE/WATER 1 100ML.BAG IVPB SCH (09:09)
[2024-02-07 11:15] LABS: Basophils # (A) 0.01 X 10*3/uL (0.00-0.10); Basophils % (A) 0.2 %; Eosinophils # (A) 0.27 X 10*3/uL (0.04-0.35); Eosinophils % (A) 6.7 %; HCT 35.7 % (37.2-46.3); HGB 11.6 g/dL (12.0-15.0); Immature Grans, Automated 0 %; Lymphocytes # (A) 1.36 X 10*3/uL (0.90-5.00); Lymphocytes % (A) 33.6 %; MCH 28.4 pg (27.0-32.0); MCHC 32.5 g/dL (32.0-37.0); MCV 87.3 FL (80.0-97.0); Mean Platelet Volume 9.8 FL (9.5-12.2); Monocytes # (A) 0.36 X 10*3/uL (0.20-1.00); Monocytes % (A) 8.9 %; NRBC Per 100 WBC 0 X 10*3/uL (0.00-0.01); Neutrophils # (A) 2.05 X 10*3/uL (1.80-7.70); Neutrophils % (A) 50.6 %; Platelet Count 179 X 10*3/uL (140-440); RBC 4.09 X 10*6/uL (4.10-5.20); RDW 13.3 % (11.5-14.5); WBC 4.05 X 10*3/uL (4.50-10.00)
[2024-02-07 11:30] LABS: ALT 9 U/L (8-44); AST 11 U/L (13-35); Albumin 3.7 g/dL (3.8-4.9); Albumin/Globulin Ratio 1.61 Ratio (1.60-3.17); Alkaline Phosphatase 62 U/L (41-126); BUN/Creat Ratio 14.14 Ratio (12.00-20.00); Blood Urea Nitrogen 9.9 mg/dL (9.0-27.0); Calcium 8.7 mg/dL (8.7-10.3); Carbon Dioxide 26.2 mmol/L (21.6-31.8); Chloride 109 mmol/L (96-109); Globulin 2.3 g/dL (1.6-3.3); Glucose 167 mg/dL (70-110); Magnesium 1.6 mg/dL (1.5-2.4); Potassium 4.5 mmol/L (3.5-5.5); Sodium 143 mmol/L (135-145); Total Bilirubin 0.4 mg/dL (0.3-1.2)
[2024-02-07 11:45] LABS: Glucose,Whole Blood 154 mg/dL (70-110)
--- NOTE | 2024-02-07 12:00 | P.CONS ---
History of Present Illness - Reason for Consult Consult date: 02/07/24 Questionable mass Requesting physician: Kip Jordan - Chief Complaint Flank pain - History of Present Illness This is a pleasant 78-year-old -Tajik female who presented to the emergency department with complaints of ongoing flank pain. Patient states she started having flank pain back in August 2023 and had workup with no findings. In November of this year she started having it radiate to her left side. She states on Monday it became progressively worse and she was seen by her primary care physician yesterday who recommended she come to the emergency department. States she has had imaging done in the outpatient setting looking at her kidneys and bladder. She had a CT of the abdomen pelvis with contrast that reported colonic distention with a focal narrowing which reported could be related to spasm however neoplasm is not excluded. Patient also had moderate fecal stasis noted. She denies any actual abdominal pain no nausea or vomiting. She states that she usually has regular bowel movements usually up to 2-3 a day but has not had a bowel movement since Monday. She denies any recent weight loss or decreased appetite. Last colonoscopy was done with Dr. Merrill in July 2019 as a screening colonoscopy with findings of diminutive ascending colon polyp status post colon polypectomy and moderate left-sided diverticulosis. Patient denies any bleeding from the rectum or blood in her stool. WBC 4.0 hemoglobin 11.6 hematocrit 35 platelet count 179,000 sodium 143 potassium 4.5 BUN 9.9 creatinine 0.7 total bilirubin 0.4 AST 11 ALT 9 alkaline phosphatase 62 lipase 72 Review of Systems REVIEW OF SYSTEMS: CARDIOPULMONARY: No chest pain or shortness of breath. Gastrointestinal: Denies any epigastric or abdominal pain. States pain is in the flank region mostly on the left. No nausea or vomiting. No hematemesis, coffee-ground emesis. No rectal bleeding, or melena. GENITOURINARY: No dysuria or hematuria. Left flank pain MUSCULOSKELETAL: Reports normal range of motion., Joint pain. SKIN: No rashes. No jaundice. ENDOCRINE: No chills, fevers. No excessive weight gain or loss. No polydipsia or polyuria. PSYCHIATRIC: Unremarkable. NEUROLOGY: No change in mental status. Denies dizziness, headache. ENT: Vision unremarkable. CONSTITUTIONAL: No recent weight loss. No fever, chills, night sweats. Past Medical History Past Medical History: Diabetes Mellitus, Hyperlipidemia, Hypertension, Osteoarthritis (OA) Additional Past Medical History / Comment(s): HX: NIDDM, low WBC count which Dr told her is normal for her, heart murmur., States itching under breasts. History of Any Multi-Drug Resistant Organisms: MRSA Year Discovered:: 06/25/18 MDRO Source:: Right Knee Past Surgical History: Breast Surgery Additional Past Surgical History / Comment(s): L breast bx, D&C for possible miscarriage, colonoscopy Past Anesthesia/Blood Transfusion Reactions: No Reported Reaction Past Psychological History: No Psychological Hx Reported Smoking Status: Never smoker Past Alcohol Use History: None Reported Past Drug Use History: None Reported - Past Family History Father Additional Family Medical History / Comment(s): Pt does not know her father. Mother Family Medical History: Coronary Artery Disease (CAD), Diabetes Mellitus, Hypertension Additional Family Medical History / Comment(s): Mother at age 76yrs. She had an enlarged heart Medications and Allergies Home Medications Medication Instructions Recorded Confirmed Type metFORMIN HCL [Glucophage] 1,000 mg PO BID 02/09/15 02/06/24 History lisinopriL [Prinivil] 20 mg PO BID 02/14/18 02/06/24 History Bimatoprost [Lumigan 0.01% Ophth 1 drop BOTH EYES HS 02/06/24 02/06/24 History Soln] Vitamin B-12(Unknown Dose) 1 tab PO DAILY 02/06/24 02/06/24 History Vitamin C(Unknown Dose) 1 tab PO DAILY 02/06/24 02/06/24 History Vitamin D3(Unknown Dose) 1 tab PO DAILY 02/06/24 02/06/24 History amLODIPine [Norvasc] 5 mg PO HS 02/06/24 02/06/24 History Allergies Allergy/AdvReac Type Severity Reaction Status Date / Time No Known Allergies Allergy Verified 02/06/24 18:28 Physical Exam Vitals: Vital Signs Temp Pulse Resp BP Pulse Ox 02/07/24 06:28 61 14 95 02/07/24 04:22 75 16 140/74 99 02/07/24 00:30 73 13 143/76 96 02/06/24 22:50 97.7 F 72 16 132/81 98 02/06/24 21:30 69 16 149/82 95 02/06/24 20:30 72 16 156/81 97 02/06/24 19:24 70 16 164/94 96 02/06/24 18:09 98.7 F 76 17 169/84 96 02/06/24 15:29 98.4 F 97 20 157/82 98 Intake and Output 02/06/24 02/07/24 02/07/24 22:59 06:59 14:59 Other: Weight 72.575 kg General appearance: The patient is alert, oriented, appears in no acute distress. HET: Head is normocephalic and atraumatic. Conjunctiva pink. Sclera anicteric. Neck: Supple without lymphadenopathy. Trachea midline. Heart: Regular. Lungs: Equal expansion, normal respiratory effort. Abdomen: Soft, nontender, nondistended with bowel sounds. No guarding or rigidity. Skin: No rashes. No jaundice. Extremities: Normal skin color and turgor. No pedal edema. Neurological: No focal deficits. Alert and oriented x3. Results CBC & Chem 7: 02/07/24 06:00 02/07/24 06:00 Labs: Abnormal Lab Results - Last 24 Hours (Table) 02/06/24 02/06/24 02/07/24 Range/Units 16:07 16:50 07:42 Glucose 235 H (74-99) mg/dL POC Glucose (mg/dL) 183 H (70-110) mg/dL Magnesium 1.5 L (1.6-2.3) mg/dL Urine Appearance Cloudy H (Clear) Ur Leukocyte Esterase Large H (Negative) Urine WBC 20 H (0-5) /hpf Ur Squamous Epith Cells 5 H (0-4) /hpf Urine Bacteria Rare H (None) /hpf Urine Mucus Moderate H (None) /hpf Comments: CT abdomen and pelvis with contrast reports colonic distention extending from the cecum through the mid descending colon where there is an area of focal eri rowing which could be related to spasm however neoplasm is not excluded consider direct visualization. Moderate fecal stasis as noted. Assessment and Plan (1) Abnormal CT of the abdomen Narrative/Plan: 78-year-old female presenting to the emergency department with complaints of flank pain ongoing since August 2023 becoming worse on the left side. She was instructed to come in by her PCP. CT abdomen pelvis was completed that showed area of colonic distention from cecum through mid descending colon with a focal narrowing recommend direct visualization. Patient also had fecal stasis, which patient states is not normal for her to have constipation. She normally has bowel movements 2-3 times a day however has not had a bowel movement since Monday. She denies any abdominal pain, nausea or vomiting. No weight loss. Unclear etiology. Will recommend colonoscopy for direct visualization with bowel prep today. Current Visit: Yes Status: Acute Code(s): R93.5 - ABN FINDINGS ON DX IMAGING OF ABD REGIONS, INC RETROPERITON SNOMED Code(s): 58529233935754040 (2) Constipation Current Visit: Yes Status: Acute Code(s): K59.00 - CONSTIPATION, UNSPECIFIED SNOMED Code(s): 34102891 Plan: 1. Continue symptomatic and supportive care 2. Clear liquid diet, n.p.o. after midnight 3. 3. Bowel prep today 4. Recommend colonoscopy tomorrow 5. Rest of medical management per primary medical team Thank you for this consultation, we will continue to follow. Dr. Ramiro Rai I agree with the dictator's note, documented as a scribe by China Jauregui.
[2024-02-07] MEDS: PEG 3350 (236 GM/BTL) + LYTES 4,000 ML BOTTLE PO ONE (13:51)
--- NOTE | 2024-02-07 13:53 | P.GSCN ---
History of Present Illness Consult date: 02/07/24 History of present illness: CHIEF COMPLAINT: Abdominal pain HISTORY OF PRESENT ILLNESS: This is a 78-year-old female who presents to the hospital with complaints of pain along the right upper abdomen and left upper abdomen that radiate to the back. She initially had some symptoms in September. Pain worsened this past Monday. She came into the ER for further evaluation. She denies any nausea or vomiting. She reports having regular bowel movements. She denies any blood in her stools. She reports her last colonoscopy was in 2019 with benign colon polyp. She denies any family history of colon cancer. CT scan abdomen pelvis had reported colonic distention extending from the cecum to the mid descending colon where there is an area of focal narrowing which c ould be related to spasm however neoplasm is not excluded. Consider direct visualization. Also noted moderate fecal stasis. GI service is on consult. They are planning to proceed with colonoscopy. PAST MEDICAL HISTORY: Diabetes Mellitus, Hyperlipidemia, Hypertension, Osteoarthritis PAST SURGICAL HISTORY: Left breast biopsy, D&C for possible miscarriage, colonoscopy MEDICATIONS: See below ALLERGIES: See below SOCIAL HISTORY: No illicit drug use. REVIEW OF SYSTEMS: CONSTITUTIONAL: Denies fever or chills. HEENT: Denies blurred vision, vision changes, or eye pain. Denies hemoptysis CARDIOVASCULAR: Denies chest pain or pressure. RESPIRATORY: No shortness of breath. GASTROINTESTINAL: See HPI for pertinent findings HEMATOLOGIC: Denies bleeding disorders. GENITOURINARY: Denies any blood in urine or increased urinary frequency. SKIN: Denies pruitis. Denies rash. PHYSICAL EXAM: VITAL SIGNS: Reviewed GENERAL: Well-developed in no acute distress. HEENT: No sclera icterus. Extraocular movements grossly intact. Moist buccal mucosa. Head is atraumatic, normocephalic. No nasal drainage. ABDOMEN: Soft. Nondistended. Nontender nondistended NEUROLOGIC: Alert and oriented. Cranial nerves II through XII grossly intact. LABORATORY DATA: WBC 4.05 Hgb 11.6 platelets 179 Sodium 143 potassium 4.5 creatinine 0.7 Magnesium 1.6 IMAGING: CT scan findings as stated above ASSESSMENT: 1. Abdominal pain 2. CT scan abdomen pelvis reporting colonic distention extending from the cecum to mid descending colon where there is an area of focal narrowing that could be related to spasm. However, neoplasm is not excluded. 3. Constipation. Fecal stasis noted on CT PLAN: -Recommend longer bowel prep due to patient's constipation for the colonoscopy. Discussed case with GI service. -Continue bowel prep -Continue clear liquid diet -Patient tentatively scheduled for possible sigmoid colectomy on Monday depending on colonoscopy results -Replace magnesium Physician Doubler Operator note has been reviewed by physician. Signing provider agrees with the documented findings, assessment, and plan of care. Past Medical History Past Medical History: Diabetes Mellitus, Hyperlipidemia, Hypertension, Osteoarthritis (OA) Additional Past Medical History / Comment(s): HX: NIDDM, low WBC count which Dr told her is normal for her, heart murmur., States itching under breasts. History of Any Multi-Drug Resistant Organisms: MRSA Year Discovered:: 06/25/18 MDRO Source:: Right Knee Past Surgical History: Breast Surgery Additional Past Surgical History / Comment(s): L breast bx, D&C for possible miscarriage, colonoscopy Past Anesthesia/Blood Transfusion Reactions: No Reported Reaction Past Psychological History: No Psychological Hx Reported Smoking Status: Never smoker Past Alcohol Use History: None Reported Past Drug Use History: None Reported - Past Family History Father Additional Family Medical History / Comment(s): Pt does not know her father. Mother Family Medical History: Coronary Artery Disease (CAD), Diabetes Mellitus, Hypertension Additional Family Medical History / Comment(s): Mother at age 76yrs. She had an enlarged heart Medications and Allergies Home Medications Medication Instructions Recorded Confirmed Type metFORMIN HCL [Glucophage] 1,000 mg PO BID 02/09/15 02/06/24 History lisinopriL [Prinivil] 20 mg PO BID 02/14/18 02/06/24 History Bimatoprost [Lumigan 0.01% Ophth 1 drop BOTH EYES HS 02/06/24 02/06/24 History Soln] Vitamin B-12(Unknown Dose) 1 tab PO DAILY 02/06/24 02/06/24 History Vitamin C(Unknown Dose) 1 tab PO DAILY 02/06/24 02/06/24 History Vitamin D3(Unknown Dose) 1 tab PO DAILY 02/06/24 02/06/24 History amLODIPine [Norvasc] 5 mg PO HS 02/06/24 02/06/24 History Allergies Allergy/AdvReac Type Severity Reaction Status Date / Time No Known Allergies Allergy Verified 02/06/24 18:28 Surgical - Exam Vital Signs Temp Pulse Resp BP Pulse Ox 98.4 F 97 20 157/82 98 02/06/24 15:29 02/06/24 15:29 02/06/24 15:29 02/06/24 15:29 02/06/24 15:29 Results - Labs 02/07/24 06:00 02/07/24 06:00 Abnormal Lab Results - Last 24 Hours (Table) 02/06/24 02/06/24 02/07/24 Range/Units 16:07 16:50 06:00 WBC 4.05 L (4.50-10.00) X 10*3/uL RBC 4.09 L (4.10-5.20) X 10*6/uL Hgb 11.6 L (12.0-15.0) g/dL Hct 35.7 L (37.2-46.3) % Glucose 235 H (74-99) mg/dL POC Glucose (mg/dL) (70-110) mg/dL Hemoglobin A1c (<=6.0) % Magnesium 1.5 L (1.6-2.3) mg/dL AST (13-35) U/L Total Protein (6.2-8.2) g/dL Albumin (3.8-4.9) g/dL Urine Appearance Cloudy H (Clear) Ur Leukocyte Esterase Large H (Negative) Urine WBC 20 H (0-5) /hpf Ur Squamous Epith Cells 5 H (0-4) /hpf Urine Bacteria Rare H (None) /hpf Urine Mucus Moderate H (None) /hpf 02/07/24 02/07/24 02/07/24 Range/Units 06:00 06:00 07:42 WBC (4.50-10.00) X 10*3/uL RBC (4.10-5.20) X 10*6/uL Hgb (12.0-15.0) g/dL Hct (37.2-46.3) % Glucose 167 H (74-99) mg/dL POC Glucose (mg/dL) 183 H (70-110) mg/dL Hemoglobin A1c 8.3 H (<=6.0) % Magnesium (1.6-2.3) mg/dL AST 11 L (13-35) U/L Total Protein 6.0 L (6.2-8.2) g/dL Albumin 3.7 L (3.8-4.9) g/dL Urine Appearance (Clear) Ur Leukocyte Esterase (Negative) Urine WBC (0-5) /hpf Ur Squamous Epith Cells (0-4) /hpf Urine Bacteria (None) /hpf Urine Mucus (None) /hpf Diabetes panel 02/06/24 02/07/24 02/07/24 Range/Units 16:07 06:00 06:00 Sodium 138 143 (137-145) mmol/L Potassium 4.4 4.5 (3.5-5.1) mmol/L Chloride 104 109 (98-107) mmol/L Carbon Dioxide 26 26.2 (22-30) mmol/L BUN 9 9.9 (7-17) mg/dL Creatinine 0.74 0.7 (0.52-1.04) mg/dL Glucose 235 H 167 H (74-99) mg/dL Hemoglobin A1c 8.3 H (<=6.0) % Calcium 9.3 8.7 (8.4-10.2) mg/dL AST 17 11 L (14-36) U/L ALT 13 9 (4-34) U/L Alkaline Phosphatase 67 62 (38-126) U/L Total Protein 6.7 6.0 L (6.3-8.2) g/dL Albumin 3.8 3.7 L (3.5-5.0) g/dL Calcium panel 02/06/24 02/07/24 Range/Units 16:07 06:00 Calcium 9.3 8.7 (8.4-10.2) mg/dL Phosphorus 3.1 3.0 (2.5-4.5) mg/dL Albumin 3.8 3.7 L (3.5-5.0) g/dL Pituitary panel 02/06/24 02/07/24 Range/Units 16:07 06:00 Sodium 138 143 (137-145) mmol/L Potassium 4.4 4.5 (3.5-5.1) mmol/L Chloride 104 109 (98-107) mmol/L Carbon Dioxide 26 26.2 (22-30) mmol/L BUN 9 9.9 (7-17) mg/dL Creatinine 0.74 0.7 (0.52-1.04) mg/dL Glucose 235 H 167 H (74-99) mg/dL Calcium 9.3 8.7 (8.4-10.2) mg/dL Adrenal panel 02/06/24 02/07/24 Range/Units 16:07 06:00 Sodium 138 143 (137-145) mmol/L Potassium 4.4 4.5 (3.5-5.1) mmol/L Chloride 104 109 (98-107) mmol/L Carbon Dioxide 26 26.2 (22-30) mmol/L BUN 9 9.9 (7-17) mg/dL Creatinine 0.74 0.7 (0.52-1.04) mg/dL Glucose 235 H 167 H (74-99) mg/dL Calcium 9.3 8.7 (8.4-10.2) mg/dL Total Bilirubin 0.5 0.4 (0.2-1.3) mg/dL AST 17 11 L (14-36) U/L ALT 13 9 (4-34) U/L Alkaline Phosphatase 67 62 (38-126) U/L Total Protein 6.7 6.0 L (6.3-8.2) g/dL Albumin 3.8 3.7 L (3.5-5.0) g/dL
[2024-02-07] MEDS: MORPHINE SULFATE 4 MG/ML SYRINGE IV PRN (15:47)
--- NOTE | 2024-02-07 15:49 | P.PN ---
Progress Note - Text Progress Note Date: 02/07/24 Chief Complaint: Abdominal pain This is a 78-year-old patient who follows with Dr. Allen. Chronic stable medical conditions include diabetes, hyperlipidemia, hypertension, osteoarthritis, chronically low WBC count,. Patient back in August 2023 started off with some right-sided intermittent abdominal pain. Then saw her family doctor. The following months. Initial workup was negative. Subsequently symptoms went to the left side to patient went to [facility] as her daughter works there. She underwent ultrasound and CT scan abdomen and other testing that was reportedly negative. Patient is continue to have pain since then. No nausea vomiting. Appetite is fair. Has lost about 2 to 3 pounds. Decided to come in. Patient is accompanied by her in the ER. February 06: Saw the patient this morning. GI is planning for a colonoscopy tomorrow. N.p.o. after midnight. Patient states at home she been having couple small BMs a day. Active Medications Amlodipine Besylate (Amlodipine 5 Mg Tab) 5 mg PO HS [facility] Last Admin: 02/06/24 22:46 Dose: 5 mg Dextrose/Water (Dextrose 50% Syringe 50 Ml) 25 ml IVP PER PROTOCOL PRN; Protocol PRN Reason: Hypoglycemia Dextrose/Water (Dextrose 50% Syringe 50 Ml) 50 ml IVP PER PROTOCOL PRN; Protocol PRN Reason: Hypoglycemia Enoxaparin Sodium (Enoxaparin 40 Mg/0.4 Ml Syringe) 40 mg SQ DAILY [facility] Last Admin: 02/07/24 09:10 Dose: Not Given Sodium Chloride (Saline 0.9%) 1,000 mls @ 75 mls/hr IV .[id number] [facility] Last Admin: 02/07/24 07:49 Dose: Not Given Insulin Aspart (Insulin Aspart (Novolog) 100 Unit/Ml Vial) 0 unit SQ AC-TID [facility]; Protocol Last Admin: 02/07/24 12:39 Dose: Not Given Latanoprost (Latanoprost 0.005% Ophth Drops 2.5 Ml Btl) 1 drops BOTH EYES [facility] Last Admin: 02/06/24 22:47 Dose: 1 drops Lisinopril (Lisinopril 20 Mg Tab) 20 mg PO BID [facility] Last Admin: 02/07/24 09:10 Dose: 20 mg Morphine Sulfate (Morphine Sulfate 4 Mg/Ml Syringe) 4 mg IV Q4HR PRN PRN Reason: Severe Pain (Scale 7 to 10) Naloxone HCl (Naloxone 0.4 Mg/Ml 1 Ml Vial) 0.2 mg IV Q2M PRN PRN Reason: Opioid Reversal Ondansetron HCl (Ondansetron 4 Mg/2 Ml Vial) 4 mg IVP Q8HR PRN PRN Reason: Nausea And Vomiting Social history: 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 . Patient smoked all on and off as a teenager and smoked one third a pack a day stopped in 2009. No alcohol. Physical examination: VITAL SIGNS: 98.1, 78, 18, [birth year]30[birth year]1981, 97% room air GENERAL: Up in a recliner EYES: Pupils equal. Conjunctiva amilcar l. HEENT: External appearance of nose and ears normal, oral cavity grossly normal. NECK: JVD not raised; masses not palpable. HEART: First and second heart sounds are normal; no edema. LUNGS: Respiratory rate normal; clear with some decreased breath sounds. ABDOMEN: Soft, nontender, liver spleen not palpable, no masses palpable. PSYCH: Alert and oriented x3; mood and affect amilcar l. MUSCULOSKELETAL:No Clubbing/cyanosis;muscles-grossly intact INVESTIGATIONS, reviewed in the clinical context: February 06: White count 4 hemoglobin 9.6 platelets 179 potassium 4.5 creatinine 0.7 EKG tracing personally reviewed by me-normal sinus rhythm. Nonspecific T wave changes Chest x-ray film personally reviewed by me-prominent hilum February 06, 2024: White count 5.7 hemoglobin 12.6 platelets 196 sodium 138 potassium 4.4 creatinine 0.74 glucose [address] scan abdomen pelvis with contrast: Colonic distention extending from the cecum through the mid descending colon where there is an area of focal narrowing. Neoplasm is not excluded. Moderate fecal stasis. In the right hemicolon Assessment plan: -This is a patient who presents with abdominal pain started in August 2023 initially on the right side and on both sides. Symptoms of gotten worse. Patient had a workup at [facility] back in November of this year that was unremarkable. Now presents with worsening symptoms. Patient is found to have focal narrowing on the left colon. Patient n.p.o. after midnight for colonoscopy tomorrow -Normocytic anemia Await colonoscopy -Asymptomatic bacteriuria No antibiotics -Essential hypertension Prinivil 20 mg twice daily. Amlodipine 5 mg nightly -Diabetes mellitus type 2 on oral hypoglycemic Hold metformin. Accu-Cheks with sliding scale insulin Discussed with patient. Past Medical History Past Medical History: Diabetes Mellitus, Hyperlipidemia, Hypertension, Osteoarthritis (OA) Additional Past Medical History / Comment(s): HX: NIDDM, low WBC count which Dr told her is normal for her, heart murmur., States itching under breasts. History of Any Multi-Drug Resistant Organisms: MRSA Date of last positivie culture/infection: 06/25/18 MDRO Source:: Right Knee Past Surgical History: Breast Surgery Additional Past Surgical History / Comment(s): L breast bx, D&C for possible miscarriage, colonoscopy Past Anesthesia/Blood Transfusion Reactions: No Reported Reaction Past Psychological History: No Psychological Hx Reported Smoking Status: Never smoker Past Alcohol Use History: None Reported Past Drug Use History: None Reported
[2024-02-07 16:24] LABS: Glucose,Whole Blood 138 mg/dL (70-110)
[2024-02-07 20:34] LABS: Glucose,Whole Blood 137 mg/dL (70-110)
[2024-02-08 05:40] LABS: Glucose,Whole Blood 153 mg/dL (70-110)
[2024-02-08 11:27] LABS: Glucose,Whole Blood 151 mg/dL (70-110)
[2024-02-08] MEDS ORDERED: PROPOFOL 10 MG/ML 20 ML VIAL IV ONE (14:48)
[2024-02-08] MEDS: IV FLUID CONTINUATION 1,000 ML IV ONE (14:49)
--- NOTE | 2024-02-08 15:04 | P.PN ---
Subjective Progress Note Date: 02/08/24 CHIEF COMPLAINT: Abdominal pain HISTORY OF PRESENT ILLNESS: Patient scheduled for colonoscopy with GI service today. She reports her stools are clear. She completed the [employer] bowel prep. She does complain of some right upper quadrant discomfort today. Denies any nausea or vomiting. Afebrile. Repeat magnesium 1.8 PHYSICAL EXAM: VITAL SIGNS: Reviewed. GENERAL: Well-developed in no acute distress. HEENT: No sclera icterus. Extraocular movements grossly intact. Moist buccal mucosa. Head is atraumatic, normocephalic. ABDOMEN: Soft. Nondistended. Right upper quadrant tenderness NEUROLOGIC: Alert and oriented. Cranial nerves II through XII grossly intact. ASSESSMENT: 1. Abdominal pain 2. CT scan abdomen pelvis reporting colonic distention extending from the cecum to mid descending colon where there is an area of focal narrowing that could be related to spasm. However, neoplasm is not excluded. 3. Constipation. Fecal stasis noted on CT PLAN: -Patient scheduled for colonoscopy today with GI service -Patient tentatively scheduled for possible sigmoid colectomy on Monday depending on colonoscopy results Physician Clerk General note has been reviewed by physician. Signing provider agrees with the documented findings, assessment, and plan of care. I have personally seen and examined the patient, reviewed the BELT TENDER /PAs history, exam and MDM and agree with the assessment and plan as written. Based on total visit time, I have performed more than 50% of the visit. As above: Patient's colonoscopy today looks normal. Describes chronic right upper quadrant discomfort. Patient has had extensive workup in the past. On recent CAT scan mild prominence of the pancreatic duct however if you look back at the study from 2019 it does not look significantly different. She states she has had many other tests performed at other hospitals. She was told in the past her gallbladder was normal. No abnormalities of the gallbladder on this CAT scan. Continue regular diet. If doing well anticipate discharge tomorrow. Follow-up with primary team as outpatient to further evaluate this right upper quadrant pain. Objective - Vital Signs Vital signs: Vital Signs Temp 97.7 F 02/08/24 12:49 Pulse 73 02/08/24 12:49 Resp 18 02/08/24 12:49 BP 166/65 02/08/24 12:49 Pulse Ox 98 02/08/24 12:49 FiO2 Intake & Output 02/07/24 02/08/2402/07/24 18:59 06:59 18:59 Weight 72.575 kg Other: # Voids 6 # Bowel Movements 6 - Labs CBC & Chem 7: 02/07/24 06:00 02/07/24 06:00 Labs: Abnormal Lab Results - Last 24 Hours (Table) 02/07/24 02/07/24 02/08/24 Range/Units 16:22 20:30 05:39 POC Glucose (mg/dL) 138 H 137 H 153 H (70-110) mg/dL 02/08/24 Range/Units 11:24 POC Glucose (mg/dL) 151 H (70-110) mg/dL Microbiology - Last 24 Hours (Table) 02/06/24 16:25 Blood Culture - Preliminary Blood 02/06/24 16:10 Blood Culture - Preliminary Blood
--- NOTE | 2024-02-08 15:04 | P.PCN ---
Date of Procedure: 02/08/24 Procedure(s) Performed: BRIEF HISTORY: Patient is a 78-year-old pleasant -Togolese female scheduled for a colonoscopy as a part of evaluation of abnormal CAT scan that showed colonic distention with focal narrowing of the descending colon suspicious for neoplasm.the patient was admitted to the emergency room with right-sided flank pain and had a CT of abdomen and pelvis. She denies any abdominal pain, change in bowel habits. PROCEDURE PERFORMED: Colonoscopy. PREOPERATIVE DIAGNOSIS: Abnormal CAT scan showing dilated/distended colon focal narrowing ofdescending colon. IV sedation per Anesthesia. PROCEDURE: After informed consent was obtained, the patient, was brought into the endoscopy unit. IV sedation was administered by Anesthesia under continuous monitoring. Digital rectal examination was normal. Initially the Olympus CF-160 flexible video colonoscope was then inserted in the rectum, gradually advanced into the cecum without any difficulty. Careful examination was performed as the scope was gradually being withdrawn. Ileocecal valve and the appendiceal orifice were visualized and appeared normal. Prep was excellent. Mucosa of the cecum, ascending colon, transverse colon, descending colon, sigmoid colon, and rectum appeared normal.scattered sigmoid diverticulosis Retroflexion was performed in the rectum and no lesions were seen. The patient tolerated the procedure well. IMPRESSION: Normal-appearing colon from rectum to cecum with no evidence of colorectal neoplasia. Scattered sigmoid diverticula RECOMMENDATIONS: Findings of this examination were discussed with the patient . Advance diet as tolerated.
[2024-02-08 16:18] LABS: Glucose,Whole Blood 129 mg/dL (70-110)
--- NOTE | 2024-02-08 16:31 | P.PN ---
Progress Note - Text Progress Note Date: 02/08/24 Chief Complaint: Abdominal pain This is a 78-year-old patient who follows with Dr. Allen. Chronic stable medical conditions include diabetes, hyperlipidemia, hypertension, osteoarthritis, chronically low WBC count,. Patient back in August 2023 started off with some right-sided intermittent abdominal pain. Then saw her family doctor. The following months. Initial workup was negative. Subsequently symptoms went to the left side to patient went to [facility] as her daughter works there. She underwent ultrasound and CT scan abdomen and other testing that was reportedly negative. Patient is continue to have pain since then. No nausea vomiting. Appetite is fair. Has lost about 2 to 3 pounds. Decided to come in. Patient is accompanied by her in the ER. February 06: Saw the patient this morning. GI is planning for a colonoscopy tomorrow. N.p.o. after midnight. Patient states at home she been having couple small BMs a day. February 07: Patient was seen this morning. Pending colonoscopy. Underwent colonoscopy. Found to have a normal-appearing colon. Some scattered diverticula. Resumed on regular diet. Active Medications Amlodipine Besylate (Amlodipine 5 Mg Tab) 5 mg PO HS [facility] Last Admin: 02/07/24 19:54 Dose: 5 mg Dextrose/Water (Dextrose 50% Syringe 50 Ml) 25 ml IVP PER PROTOCOL PRN; Protocol PRN Reason: Hypoglycemia Dextrose/Water (Dextrose 50% Syringe 50 Ml) 50 ml IVP PER PROTOCOL PRN; Protocol PRN Reason: Hypoglycemia Enoxaparin Sodium (Enoxaparin 40 Mg/0.4 Ml Syringe) 40 mg SQ DAILY [facility] Last Admin: 02/08/24 08:44 Dose: Not Given Sodium Chloride (Saline 0.9%) 1,000 mls @ 75 mls/hr IV .[id number] [facility] Last Admin: 02/07/24 19:44 Dose: Not Given Insulin Aspart (Insulin Aspart (Novolog) 100 Unit/Ml Vial) 0 unit SQ AC-TID [facility]; Protocol Last Admin: 02/08/24 16:28 Dose: Not Given Latanoprost (Latanoprost 0.005% Ophth Drops 2.5 Ml Btl) 1 drops BOTH EYES HS [facility] Last Admin: 02/07/24 19:53 Dose: 1 drops Lisinopril (Lisinopril 20 Mg Tab) 20 mg PO BID [facility] Last Admin: 02/08/24 08:47 Dose: 20 mg Morphine Sulfate (Morphine Sulfate 4 Mg/Ml Syringe) 4 mg IV Q4HR PRN PRN Reason: Severe Pain (Scale 7 to 10) Last Admin: 02/08/24 08:50 Dose: 4 mg Naloxone HCl (Naloxone 0.4 Mg/Ml 1 Ml Vial) 0.2 mg IV Q2M PRN PRN Reason: Opioid Reversal Ondansetron HCl (Ondansetron 4 Mg/2 Ml Vial) 4 mg IVP Q8HR PRN PRN Reason: Nausea And Vomiting Social history: 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 . Patient smoked all on and off as a teenager and smoked one third a pack a day stopped in 2009. No alcohol. Physical examination: VITAL SIGNS: 97.5, 65, 17, 1 3883, 99% room air GENERAL: Up in a recliner EYES: Pupils equal. Conjunctiva amilcar l. HEENT: External appearance of nose and ears normal, oral cavity grossly normal. NECK: JVD not raised; masses not palpable. HEART: First and second heart sounds are normal; no edema. LUNGS: Respiratory rate normal; clear with some decreased breath sounds. ABDOMEN: Soft, nontender, liver spleen not palpable, no masses palpable. PSYCH: Alert and oriented x3; mood and affect amilcar l. MUSCULOSKELETAL:No Clubbing/cyanosis;muscles-grossly intact INVESTIGATIONS, reviewed in the clinical context: Colonoscopy [February 07]: Colonic diverticulosis February 06: White count 4 hemoglobin 9.6 platelets 179 potassium 4.5 creatinine 0.7 EKG tracing personally reviewed by me-normal sinus rhythm. Nonspecific T wave changes Chest x-ray film personally reviewed by me-prominent hilum February 06, 2024: White count 5.7 hemoglobin 12.6 platelets 196 sodium 138 potassium 4.4 creatinine 0.74 glucose [address] scan abdomen pelvis with contrast: Colonic distention extending from the cecum through the mid descending colon where there is an area of focal narrowing. Neoplasm is not excluded. Moderate fecal stasis. In the right hemicolon Assessment plan: -This is a patient who presents with abdominal pain started in August 2023 initially on the right side and on both sides. Symptoms of gotten worse. Patient had a workup at [facility] back in November of this year that was unremarkable. Now presents with worsening symptoms. Patient is found to have focal narrowing on the left colon. Colonoscopy: Unremarkable -Normocytic anemia Colonoscopy: Unremarkable Check iron studies, B12, folate -Asymptomatic bacteriuria No antibiotics -Essential hypertension Prinivil 20 mg twice daily. Amlodipine 5 mg nightly -Diabetes mellitus type 2 on oral hypoglycemic Resume metformin. Accu-Cheks with sliding scale insulin Will send out anemia workup. Resume diet. Past Medical History Past Medical History: Diabetes Mellitus, Hyperlipidemia, Hypertension, Osteoarthritis (OA) Additional Past Medical History / Comment(s): HX: NIDDM, low WBC count which Dr told her is normal for her, heart murmur., States itching under breasts. History of Any Multi-Drug Resistant Organisms: MRSA Date of last positivie culture/infection: 06/25/18 MDRO Source:: Right Knee Past Surgical History: Breast Surgery Additional Past Surgical History / Comment(s): L breast bx, D&C for possible miscarriage, colonoscopy Past Anesthesia/Blood Transfusion Reactions: No Reported Reaction Past Psychological History: No Psychological Hx Reported Smoking Status: Never smoker Past Alcohol Use History: None Reported Past Drug Use History: None Reported
[2024-02-08 20:31] LABS: Glucose,Whole Blood 106 mg/dL (70-110)
[2024-02-08] MEDS: metFORMIN 500 MG TAB PO SCH (21:47)
[2024-02-08 23:42] LABS: % Iron Saturation 13.7 (12.00-45.00)
[2024-02-09 06:01] LABS: Glucose,Whole Blood 171 mg/dL (70-110)
--- NOTE | 2024-02-09 07:39 | P.PN ---
Subjective Progress Note Date: 02/09/24 Principal diagnosis: Abnormal CT findings This is a pleasant 78-year-old -Maur[place] female who presented to the emergency department with complaints of ongoing flank pain. Patient states she started having flank pain back in August 2023 and had workup with no findings. In November of this year she started having it radiate to her left side. She states on Monday it became progressively worse and she was seen by her primary care physician yesterday who recommended she come to the emergency department. States she has had imaging done in the outpatient setting looking at her kidneys and bladder. She had a CT of the abdomen pelvis with contrast that reported colonic distention with a focal narrowing which reported could be related to spasm however neoplasm is not excluded. Patient also had moderate fecal stasis noted. She denies any actual abdominal pain no nausea or vomiting. She states that she usually has regular bowel movements usually up to 2-3 a day but has not had a bowel movement since Monday. She denies any recent weight loss or decreased appetite. Last colonoscopy was done with Dr. Merrill in July 2019 as a screening colonoscopy with findings of diminutive ascending colon polyp status post colon polypectomy and moderate left-sided diverticulosis. Patient denies any bleeding from the rectum or blood in her stool. WBC 4.0 hemoglobin 11.6 hematocrit 35 platelet count 179,000 sodium 143 potassium 4.5 BUN 9.9 creatinine 0.7 total bilirubin 0.4 AST 11 ALT 9 alkaline phosphatase 62 lipase 72 02/09/2024 Patient seen and examined today as a follow-up. She denies any abdominal pain, nausea or vomiting. Patient denies any blood in her stool or black stool. Yesterday she underwent colonoscopy with findings of a normal-appearing colon from rectum to cecum with no evidence of colorectal neoplasia. Scattered sigmoid diverticula. Objective - Vital Signs Vital signs: Vital Signs Temp 98.2 F 02/09/24 02:00 Pulse 73 02/09/24 02:00 Resp 17 02/09/24 02:00 BP 140/70 02/09/24 02:00 Pulse Ox 98 02/09/24 02:00 FiO2 Intake & Output 02/08/24 02/08/24 02/09/24 06:59 18:59 06:59 Intake Total 50 Balance 50 Intake: IV 50 Other: Voiding Method Toilet # Voids 6 2 # Bowel Movements 6 - Exam General appearance: The patient is alert, oriented, appears in no acute distress. HET: Head is normocephalic and atraumatic. Conjunctiva pink. Sclera anicteric. Neck: Supple without lymphadenopathy. Abdomen: Soft, nontender, nondistended with bowel sounds. No guarding or rigidity. Extremities: Normal skin color and turgor. No pedal edema Skin: No rashes, no jaundice Neurological: No focal deficits. Alert and oriented. - Labs CBC & Chem 7: 02/07/24 06:00 02/07/24 06:00 Labs: Abnormal Lab Results - Last 24 Hours (Table) 02/08/24 02/08/24 02/08/24 Range/Units 07:40 11:24 16:16 POC Glucose (mg/dL) 151 H 129 H (70-110) mg/dL Iron 37 L (50-170) UG/DL Transferrin 193.0 L (204.0-354.0) mg/dL 02/09/24 Range/Units 05:53 POC Glucose (mg/dL) 171 H (70-110) mg/dL Iron (50-170) UG/DL Transferrin (204.0-354.0) mg/dL Microbiology - Last 24 Hours (Table) 02/06/24 16:25 Blood Culture - Preliminary Blood 02/06/24 16:10 Blood Culture - Preliminary Blood Assessment and Plan (1) Abnormal CT of the abdomen Narrative/Plan: 78-year-old female presenting to the emergency department with complaints of flank pain ongoing since August 2023 becoming worse on the left side. She was instructed to come in by her PCP. CT abdomen pelvis was completed that showed area of colonic distention from cecum through mid descending colon with a focal narrowing recommend direct visualization. Patient also had fecal stasis, which patient states is not normal for her to have constipation. She normally has bowel movements 2-3 times a day however has not had a bowel movement since Monday. She denies any abdominal pain, nausea or vomiting. No weight loss. Unclear etiology. Will recommend colonoscopy for direct visualization with bowel prep today. 02/09/2024: Patient has undergone colonoscopy with normal appearing colon. No further workup indicated from gastroenterology. Current Visit: Yes Status: Acute Code(s): R93.5 - ABN FINDINGS ON DX IMAGING OF ABD REGIONS, INC RETROPERITON SNOMED Code(s): 06479652148847179 (2) Constipation Narrative/Plan: Resolved Current Visit: Yes Status: Acute Code(s): K59.00 - CONSTIPATION, UNSPECIFIED SNOMED Code(s): 51323664 Plan: 1. Continue symptomatic and supportive care 2. Regular diet 3. Patient is status post colonoscopy. Normal appearing colon. Thank you for this consultation, patient is cleared from gastroenterology for discharge. We will sign off at this time. Dr. Ramiro Rai I agree with the dictator's note, documented as a scribe by China Jauregui.
[2024-02-09 11:33] LABS: Glucose,Whole Blood 119 mg/dL (70-110)
--- NOTE | 2024-02-09 13:37 | P.PN ---
Subjective Progress Note Date: 02/09/24 CHIEF COMPLAINT: Abdominal pain HISTORY OF PRESENT ILLNESS: Patient status post colonoscopy with GI service. Results showed a normal colon and scattered sigmoid diverticula. Patient still reports some right upper quadrant abdominal pain. Denies any nausea or vomiting. Tolerating regular diet. Having flatus. Afebrile. PHYSICAL EXAM: VITAL SIGNS: Reviewed. GENERAL: Well-developed in no acute distress. HEENT: No sclera icterus. Extraocular movements grossly intact. Moist buccal mucosa. Head is atraumatic, normocephalic. ABDOMEN: Soft. Nondistended. Nontender NEUROLOGIC: Alert and oriented. Cranial nerves II through XII grossly intact. ASSESSMENT: 1. Right upper quadrant abdominal pain. Normal colonoscopy 2. Constipation improved PLAN: -Patient can be discharged from surgical standpoint -No surgical intervention planned -Recommend follow-up with PCP outpatient for further evaluation of the right upper quadrant pain. Patient states she has had many other test performed at other hospitals. She was told that her gallbladder was normal. No abnormalities of the gallbladder on CT. Physician Physician Ophthalmologist note has been reviewed by physician. Signing provider agrees with the documented findings, assessment, and plan of care. I have personally seen and examined the patient, reviewed the ITALIAN LECTURER /PAs history, exam and MDM and agree with the assessment and plan as written. Based on total visit time, I have performed more than 50% of the visit. As above: Patient feels better today. Tolerating diet. No nausea or vomiting. Still with intermittent right upper quadrant and left upper quadrant pains. Had an episode of pain while coughing in the room on the left flank region. Etiology unclear. May be musculoskeletal. Will sign off. Please call if needed. Objective - Vital Signs Vital signs: Vital Signs Temp 98.4 F 02/09/24 07:16 Pulse 67 02/09/24 08:00 Resp 20 02/09/24 08:00 BP 130/80 02/09/24 07:16 Pulse Ox 97 02/09/24 07:16 FiO2 Intake & Output 02/08/24 02/09/24 02/09/24 18:59 06:59 18:59 Intake Total 50 Balance 50 Intake: IV 50 Other: Voiding Method Toilet Toilet # Voids 2 - Labs CBC & Chem 7: 02/07/24 06:00 02/07/24 06:00 Labs: Abnormal Lab Results - Last 24 Hours (Table) 02/08/24 02/08/24 02/09/24 Range/Units 07:40 16:16 05:53 POC Glucose (mg/dL) 129 H 171 H (70-110) mg/dL Iron 37 L (50-170) UG/DL Transferrin 193.0 L (204.0-354.0) mg/dL 02/09/24 Range/Units 11:31 POC Glucose (mg/dL) 119 H (70-110) mg/dL Iron (50-170) UG/DL Transferrin (204.0-354.0) mg/dL Microbiology - Last 24 Hours (Table) 02/06/24 16:25 Blood Culture - Preliminary Blood 02/06/24 16:10 Blood Culture - Preliminary Blood
--- NOTE | 2024-02-09 16:11 | P.DS ---
"Providers Date of admission: 02/06/24 18:06 Expected date of discharge: 02/09/24 Attending physician: Kip Jordan Consults: 02/06/24 18:06 Consult Physician Routine Consulting Provider: Asad Cifuentes Consult Reason/Comments: mass? Do you want consulting provider notified?: Yes Consult Physician Routine Consulting Provider: Janene Rai Consult Reason/Comments: mass>|? Do you want consulting provider notified?: Yes Primary care physician: Miquel Helen [facility] Hospital Course: Chief Complaint: Abdominal pain This is a 78-year-old patient who follows with Dr. Allen. Chronic stable medical conditions include diabetes, hyperlipidemia, hypertension, osteoarthritis, chronically low WBC count,. Patient back in August 2023 started off with some right-sided intermittent abdominal pain. Then saw her family doctor. The following months. Initial workup was negative. Subsequently symptoms went to the left side to patient went to [facility] as her daughter works there. She underwent ultrasound and CT scan abdomen and other testing that was reportedly negative. Patient is continue to have pain since then. No nausea vomiting. Appetite is fair. Has lost about 2 to 3 pounds. Decided to come in. Patient is accompanied by her in the ER. February 06: Saw the patient this morning. GI is planning for a colonoscopy tomorrow. N.p.o. after midnight. Patient states at home she been having couple small BMs a day. February 07: Patient was seen this morning. Pending colonoscopy. Underwent colonoscopy. Found to have a normal-appearing colon. Some scattered diverticula. Resumed on regular diet. February 08: Colonoscopy was unremarkable. Patient also had significant workup that was negative at [facility]. Spoke at length with the patient. Will have the patient follow-up with Dr. Garcia if there are any questions about gallbladder. Currently no right upper quadrant pain. Given dilated colon on the CT scan and bowel spasms is in the differential. Have ordered Bentyl as needed. 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 . Patient smoked all on and off as a teenager and smoked one third a pack a day stopped in 2009. No alcohol. Physical examination: VITAL SIGNS: 98.2, 82, 17, 143 x 74, 99% room air GENERAL: Up in a recliner EYES: Pupils equal. Conjunctiva amilcar l. HEENT: External appearance of nose and ears normal, oral cavity grossly normal. NECK: JVD not raised; masses not palpable. HEART: First and second heart sounds are normal; no edema. LUNGS: Respiratory rate normal; clear with some decreased breath sounds. ABDOMEN: Soft, nontender, liver spleen not palpable, no masses palpable. PSYCH: Alert and oriented x3; mood and affect amilcar l. MUSCULOSKELETAL:No Clubbing/cyanosis;muscles-grossly intact INVESTIGATIONS, reviewed in the clinical context: Iron 37 TIBC 270% saturation 13.7 transferrin 193 ferritin 139 B12 576 folate 10.6 Colonoscopy [February 07]: Colonic diverticulosis February 06: White count 4 hemoglobin 9.6 platelets 179 potassium 4.5 creatinine 0.7 EKG tracing personally reviewed by me-normal sinus rhythm. Nonspecific T wave changes Chest x-ray film personally reviewed by me-prominent hilum February 06, 2024: White count 5.7 hemoglobin 12.6 platelets 196 sodium 138 potassium 4.4 creatinine 0.74 glucose [address] scan abdomen pelvis with contrast: Colonic distention extending from the cecum through the mid descending colon where there is an area of focal narrowing. Neoplasm is not excluded. Moderate fecal stasis. In the right hemicolon Assessment plan: -This is a patient who presents with abdominal pain started in August 2023 initially on the right side and on both sides. Symptoms of gotten worse. Patient had a workup at [facility] back in November of this year that was unremarkable. Now presents with worsening symptoms. Patient is found to have focal narrowing on the left colon. From possible underlying bowel spasms Colonoscopy: Unremarkable Bentyl 10 mg every 8 as needed -Normocytic anemia: Mild iron deficiency anemia Colonoscopy: Unremarkable Normal colon, B12, folate -Asymptomatic bacteriuria No antibiotics -Essential hypertension Prinivil 20 mg twice daily. Amlodipine 5 mg nightly -Diabetes mellitus type 2 on oral hypoglycemic Metformin. Accu-Cheks with sliding scale insulin Disposition: Home Past Medical History Past Medical History: Diabetes Mellitus, Hyperlipidemia, Hypertension, Osteoarthritis (OA) Additional Past Medical History / Comment(s): HX: NIDDM, low WBC count which Dr told her is normal for her, heart murmur., States itching under breasts. History of Any Multi-Drug Resistant Organisms: MRSA Date of last positivie culture/infection: 06/25/18 MDRO Source:: Right Knee Past Surgical History: Breast Surgery Additional Past Surgical History / Comment(s): L breast bx, D&C for possible miscarriage, colonoscopy Past Anesthesia/Blood Transfusion Reactions: No Reported Reaction Past Psychological History: No Psychological Hx Reported Smoking Status: Never smoker Past Alcohol Use History: None Reported Past Drug Use History: None Reported Plan - Discharge Summary New Discharge Prescriptions: New Dicyclomine [Bentyl] 10 mg PO TID PRN #30 capsule PRN Reason: Spasms Continue metFORMIN HCL [Glucophage] 1,000 mg PO BID lisinopriL [Prinivil] 20 mg PO BID Vitamin D3(Unknown Dose) 1 tab PO DAILY Vitamin B-12(Unknown Dose) 1 tab PO DAILY amLODIPine [Norvasc] 5 mg PO HS Bimatoprost [Lumigan 0.01% Ophth Soln] 1 drop BOTH EYES HS Vitamin C(Unknown Dose) 1 tab PO DAILY Discharge Medication List metFORMIN HCL [Glucophage] 1,000 mg PO BID 02/09/15 [History] lisinopriL [Prinivil] 20 mg PO BID 02/14/18 [History] Bimatoprost [Lumigan 0.01% Ophth Soln] 1 drop BOTH EYES HS 02/06/24 [History] Vitamin B-12(Unknown Dose) 1 tab PO DAILY 02/06/24 [History] Vitamin C(Unknown Dose) 1 tab PO DAILY 02/06/24 [History] Vitamin D3(Unknown Dose) 1 tab PO DAILY 02/06/24 [History] amLODIPine [Norvasc] 5 mg PO HS 02/06/24 [History] Dicyclomine [Bentyl] 10 mg PO TID PRN #30 capsule 02/09/24 [Rx] Follow up Appointment(s)/Referral(s): Miquel Allen DO [Primary Care Provider] - 1-2 days (Office will call you with appointment)"
[2024-02-09 16:12] VITALS: BP 143/74; PULSE 82; RESP 17; TEMP 98.2
== END 2024-02-09 17:46 | disposition home or self-care (01) | DRG 392 ==
LOC: EC 14:56 → 5NMEDONC 18:06 → 4SSUR 02-07 09:26
PROVIDERS: ADMIT Hospitalist; ATTEND Hospitalist
PROC: 0DJD8ZZ Inspection of Lower Intestinal Tract, Via Natural or Artificial Opening Endoscopic (ICD-10-PCS; principal; 2024-02-08 14:45)
DX: K57.30 Diverticulosis of large intestine without perforation or abscess without bleeding (principal); D72.819 Decreased white blood cell count, unspecified; K56.41 Fecal impaction; Z86.14 Personal history of Methicillin resistant Staphylococcus aureus infection; I10 Essential (primary) hypertension; M19.90 Unspecified osteoarthritis, unspecified site; E78.5 Hyperlipidemia, unspecified; Z79.84 Long term (current) use of oral hypoglycemic drugs; Z79.899 Other long term (current) drug therapy; Z82.49 Family history of ischemic heart disease and other diseases of the circulatory system; Z87.19 Personal history of other diseases of the digestive system; Z87.891 Personal history of nicotine dependence; Z86.010 Personal history of colon polyps
CPT/HCPCS: 36415; 45378; 71046; 74177; 80053; 81001; 82150; 82607; 82728; 82746; 83036; 83540; 83550; 83690; 83735; 84100; 85025; 87040; 93005; 96361; 96365; 96366; 96367; 96375; 99285

== ENCOUNTER → 2024-05-14 | Outpatient (CLI) | payer MEDICARE ==
--- NOTE | 2024-05-22 21:55 | MM ---
Reason for Exam: Screening (asymptomatic). Last mammogram was performed 1 year(s) and 3 month(s) ago. Patient History: Menarche at age 14. First Full-Term at age 20. Postmenopausal. Patient has history of breast feeding. Hormonal Contraceptives for 4 months starting at age 18. Excisional Biopsy on the Left side. Risk Values: Stephanie 5 year model risk: 1.7%. NCI Lifetime model risk: 3.5%. Prior Study Comparison: 11/09/2021 Bilateral Screening Mammogram, [facility]. 02/27/2023 Bilateral MG 3D screening mammo w/cad, [facility]. 05/11/2023 Right MG 3D work up w/cad RT, [facility]. Tissue Density: The breasts are heterogeneously dense, which may obscure small masses. Findings: Analyzed By CAD. Unchanged subareolar focal asymmetry on the right. Some benign vascular calcifications on both sides. There is no suspicious group of microcalcifications or new suspicious mass in either breast. Overall Assessment: Benign, BI-RAD 2 Management: Screening Mammogram of both breasts in 1 year. . Patient should continue monthly self-breast exams. A clinical breast exam by your physician is recommended on an annual basis. This exam should not preclude additional follow-up of suspicious palpable abnormalities. Note on Stephanie scores and lifetime risk: 1. A Stephanie score greater than 3% is considered moderate risk. If this is the case, consider specialist referral to assess eligibility for a risk reducing agent. 2. If overall lifetime risk for the development of breast cancer is 20% or higher, the patient may qualify for future screening with alternating mammogram and breast MRI. Electronically signed and approved by: Louis Braun M.D. Radiologist
== END | disposition home or self-care (01) ==
LOC: RADMAMWWP 08:14
PROVIDERS: ATTEND Family Medicine
DX: Z12.31 Encounter for screening mammogram for malignant neoplasm of breast (principal); R92.333 Mammographic heterogeneous density, bilateral breasts; Z78.0 Asymptomatic menopausal state
CPT/HCPCS: 77063; 77067

== ENCOUNTER 2024-08-18 05:14 | Emergency (ER) | payer MEDICARE ==
[2024-08-18 05:18] VITALS: RESP 18; TEMP 98.1
--- NOTE | 2024-08-18 05:33 | ED ---
Recheck HPI - General Chief Complaint: Recheck/Abnormal Lab/Rx Stated Complaint: High BP Time Seen by Provider: 08/18/24 05:16 Source: patient, RN notes reviewed, old records reviewed Mode of arrival: ambulatory Limitations: no limitations - History of Present Illness Initial Comments: This is a 78-year-old female strictly to evaluate severely elevated blood pressure, blood pressure recheck today, patient has history of high blood pressure which she takes lisinopril for she is at max dose of lisinopril 20 mg twice a day and presents today for uncontrolled blood pressure has been getting worse throughout the week MD Complaint: abnormal lab (Fairly elevated blood pressure) -: week(s) Symptoms Since Prior Visit: no new symptoms Associated Symptoms: none Treatments Prior to Arrival: other (0) - Related Data Home Medications Medication Instructions Recorded Confirmed metFORMIN HCL [Glucophage] 1,000 mg PO BID 02/09/15 02/06/24 lisinopriL [Prinivil] 20 mg PO BID 02/14/18 02/06/24 Bimatoprost [Lumigan 0.01% Ophth 1 drop BOTH EYES HS 02/06/24 02/06/24 Soln] Vitamin B-12(Unknown Dose) 1 tab PO DAILY 02/06/24 02/06/24 Vitamin C(Unknown Dose) 1 tab PO DAILY 02/06/24 02/06/24 Vitamin D3(Unknown Dose) 1 tab PO DAILY 02/06/24 02/06/24 amLODIPine [Norvasc] 5 mg PO HS 02/06/24 02/06/24 Previous Rx's Medication Instructions Recorded Dicyclomine [Bentyl] 10 mg PO TID PRN #30 capsule 02/09/24 Metoprolol Tartrate [Lopressor] 50 mg PO BID #60 tab 08/18/24 Allergies Allergy/AdvReac Type Severity Reaction Status Date / Time No Known Allergies Allergy Verified 08/18/24 05:18 Review of Systems ROS Statement: Those systems with pertinent positive or pertinent negative responses have been documented in the HPI. ROS Other: All systems not noted in ROS Statement are negative. Past Medical History Past Medical History: Diabetes Mellitus, Hyperlipidemia, Hypertension, Osteoarthritis (OA) Additional Past Medical History / Comment(s): HX: NIDDM, low WBC count which Dr told her is normal for her, heart murmur., States itching under breasts. History of Any Multi-Drug Resistant Organisms: MRSA Date of last positivie culture/infection: 06/25/18 MDRO Source:: Right Knee Past Surgical History: Breast Surgery Additional Past Surgical History / Comment(s): L breast bx, D&C for possible miscarriage, colonoscopy Past Anesthesia/Blood Transfusion Reactions: No Reported Reaction Past Psychological History: No Psychological Hx Reported Smoking Status: Former smoker Past Alcohol Use History: None Reported Past Drug Use History: None Reported - Past Family History Father Additional Family Medical History / Comment(s): Pt does not know her father. Mother Family Medical History: Coronary Artery Disease (CAD), Diabetes Mellitus, Hype rtension Additional Family Medical History / Comment(s): Mother at age 76yrs. She had an enlarged heart General Exam Limitations: no limitations General appearance: alert, in no apparent distress Head exam: Present: atraumatic, normocephalic, normal inspection Eye exam: Present: normal appearance, PERRL, EOMI. Absent: scleral icterus, conjunctival injection, periorbital swelling ENT exam: Present: normal exam, mucous membranes moist Neck exam: Present: normal inspection. Absent: tenderness, meningismus, lymphadenopathy Respiratory exam: Present: normal lung sounds bilaterally. Absent: respiratory distress, wheezes, rales, rhonchi, stridor Cardiovascular Exam: Present: regular rate, normal rhythm, normal heart sounds. Absent: systolic murmur, diastolic murmur, rubs, gallop, clicks GI/Abdominal exam: Present: soft, normal bowel sounds. Absent: distended, tenderness, guarding, rebound, rigid Extremities exam: Present: normal inspection, full ROM, normal capillary refill. Absent: tenderness, pedal edema, joint swelling, calf tenderness Back exam: Present: normal inspection Neurological exam: Present: alert, oriented X3, CN II-XII intact Psychiatric exam: Present: normal affect, normal mood Skin exam: Present: warm, dry, intact, normal color. Absent: rash Course Vital Signs 08/18/24 08/18/24 08/18/24 05:15 05:57 06:09 Temperature 98.1 F Pulse Rate 87 Respiratory 18 Rate Blood Pressure 245/108 165/82 154/76 O2 Sat by Pulse 99 Oximetry 08/18/24 06:59 Temperature Pulse Rate 75 Respiratory 18 Rate Blood Pressure 158/83 O2 Sat by Pulse 97 Oximetry - Reevaluation(s) Reevaluation #1: 08/18/24 05:54 Medical records reviewed Reevaluation #2: 08/18/24 05:54 Patient remains asymptomatic Reevaluation #3: Patient informed of results and questions answered Reevaluation #4: Was pt. sent in by a medical professional or institution (, [facility], INTERIOR DESIGN DIRECTOR, urgent care, hospital, or correction...) When possible be specific @ -no Did you speak to anyone other than the patient for history (EMS, parent, family, police, friend...)? What history was obtained from this source @ -no Did you review nursing and triage notes (agree or disagree)? Why? @ -agree Are old charts reviewed (outside hosp., previous admission, EMS record, old EKG, old radiological studies, urgent care reports/EKG's, correction records)? Report findings @ -yes Differential Diagnosis (chest pain, altered mental status, abdominal pain women, abdominal pain men, vaginal bleeding, weakness, fever, dyspnea, syncope, headache, dizziness, GI bleed, back pain, seizure, CVA, palpatations, mental health, musculoskeletal)? @ -prior EKG interpreted by me (3pts min.). @ -yes X-rays interpreted by me (1pt min.). @ -yes negative for acute disease CT interpreted by me (1pt min.). @ -no U/S interpreted by me (1pt. min.). @ -no What testing was considered but not performed or refused? (CT, X-rays, U/S, labs)? Why? @ -none What meds were considered but not given or refused? Why? @ -none Did you discuss the management of the patient with other professionals (professionals i.e. [facility] Avery, INTERIOR DESIGN DIRECTOR, lab, RT, psych nurse, social media designer, high lift mule operator, teacher, employment security officer, nurse outreach case manager)? Give summary @ -no Was smoking cessation discussed for >3mins.? @ -no Was critical care preformed (if so, how long)? @ -no Were there social determinants of health that impacted care today? How? (Homelessness, low income, unemployed, alcoholism, drug addiction, transportation, low edu. Level, literacy, decrease access to med. care, group home, rehab)? @ -none Was there de-escalation of care discussed even if they declined (Discuss DNR or withdrawal of care, Hospice)? DNR status @ -no What co-morbidities impacted this encounter? (DM, HTN, Smoking, COPD, CAD, Cancer, CVA, ARF, Chemo, Hep., AIDS, mental health diagnosis, sleep apnea, morbid obesity)? @ -none Was patient admitted / discharged? Hospital course, mention meds given and route, prescriptions, significant lab abnormalities, going to OR and other pertinent info. @ - Undiagnosed new problem with uncertain prognosis? @ -no Drug Therapy requiring intensive monitoring for toxicity (Heparin, Nitro, Insulin, Cardizem)? @ -no Were any procedures done? @ -no Diagnosis/symptom? @ - Acute, or Chronic, or Acute on Chronic? @ -Acute Uncomplicated (without systemic symptoms) or Complicated (systemic symptoms)? @ -Complicated Side effects of treatment? @ -no Exacerbation, Progression, or Severe Exacerbation? @ -exacerbation Poses a threat to life or bodily function? How? (Chest pain, USA, PA, pneumonia, PE, COPD, DKA, ARF, appy, cholecystitis, CVA, Diverticulitis, Homicidal, Suicidal, threat to staff... and all critical care pts) @ -yes Medical Decision Making - Medical Decision Making 78 female to ER for evaluation of elevated blood pressure, hypertensive urgency here in the ER but blood pressure is well-controlled currently patient feels has no current complaints and can be discharged home - Lab Data Result diagrams: 08/18/24 05:56 08/18/24 05:56 Lab Results 08/18/24 08/18/24 08/18/24 Range/Units 05:56 05:56 05:56 WBC 3.4 L (3.8-10.6) k/uL RBC 4.31 (3.80-5.40) m/uL Hgb 12.5 (11.4-16.0) gm/dL Hct 37.6 (34.0-46.0) % MCV 87.2 (80.0-100.0) fL MCH 29.0 (25.0-35.0) pg MCHC 33.2 (31.0-37.0) g/dL RDW 13.3 (11.5-15.5) % Plt Count 247 (150-450) k/uL MPV 7.7 Neutrophils % 43 % Lymphocytes % 40 % Monocytes % 6 % Eosinophils % 6 % Basophils % 0 % Neutrophils # 1.5 (1.3-7.7) k/uL Lymphocytes # 1.4 (1.0-4.8) k/uL Monocytes # 0.2 (0-1.0) k/uL Eosinophils # 0.2 (0-0.7) k/uL Basophils # 0.0 (0-0.2) k/uL Sodium 138 (137-145) mmol/L Potassium 4.3 (3.5-5.1) mmol/L Chloride 110 H (98-107) mmol/L Carbon Dioxide 23 (22-30) mmol/L Anion Gap 5 mmol/L BUN 12 (7-17) mg/dL Creatinine 0.79 (0.52-1.04) mg/dL Est GFR (CKD-EPI)AfAm 85 (>60 ml/min/1.73 sqM) Est GFR (CKD-EPI)NonAf 74 (>60 ml/min/1.73 sqM) Glucose 193 H (74-99) mg/dL Calcium 9.3 (8.4-10.2) mg/dL Phosphorus 3.0 (2.5-4.5) mg/dL Magnesium 1.5 L (1.6-2.3) mg/dL Total Bilirubin 0.2 (0.2-1.3) mg/dL AST 20 (14-36) U/L ALT 13 (4-34) U/L Alkaline Phosphatase 63 (38-126) U/L Troponin I <0.012 (0.000-0.034) ng/mL NT-Pro-B Natriuret Pep 33 pg/mL Total Protein 6.6 (6.3-8.2) g/dL Albumin 4.1 (3.5-5.0) g/dL - EKG Data -: EKG Interpreted by Me (EKG is sinus 70 SD 202 QRS 136 QTc 429) Disposition Clinical Impression: Hypertension Disposition: HOME SELF-CARE Condition: Good Instructions (If sedation given, give patient instructions): Chronic Hypertension (ED), Hypertension (ED) Prescriptions: Metoprolol Tartrate [Lopressor] 50 mg PO BID #60 tab Is patient prescribed a controlled substance at d/c from ED?: No Referrals: Miquel Allen DO [Primary Care Provider] - 1-2 days Time of Disposition: 06:50
[2024-08-18] MEDS: SODIUM CHLORIDE 0.9% 1,000 ML IV STA (05:55)
[2024-08-18] MEDS: LABETALOL 5 MG/ML VIAL MDV IVP STA (05:55)
[2024-08-18 06:12] LABS: Basophils % (A) 0 %; Eosinophils # (A) 0.2 k/uL (0-0.7); Eosinophils % (A) 6 %; HCT 37.6 % (34.0-46.0); HGB 12.5 gm/dL (11.4-16.0); Lymphocytes # (A) 1.4 k/uL (1.0-4.8); Lymphocytes % (A) 40 %; MCHC 33.2 g/dL (31.0-37.0); MCV 87.2 fL (80.0-100.0); Mean Platelet Volume 7.7; Monocytes # (A) 0.2 k/uL (0-1.0); Monocytes % (A) 6 %; Neutrophils # (A) 1.5 k/uL (1.3-7.7); Neutrophils % (A) 43 %; Platelet Count 247 k/uL (150-450); RBC 4.31 m/uL (3.80-5.40); RDW 13.3 % (11.5-15.5); WBC 3.4 k/uL (3.8-10.6)
[2024-08-18 06:23] LABS: ALT 13 U/L (4-34); AST 20 U/L (14-36); African American GFR (CKD) 85 (>60 ml/min/1.73 sqM); Albumin 4.1 g/dL (3.5-5.0); Alkaline Phosphatase 63 U/L (38-126); Anion Gap 5 mmol/L; Blood Urea Nitrogen 12 mg/dL (7-17); Calcium 9.3 mg/dL (8.4-10.2); Carbon Dioxide 23 mmol/L (22-30); Chloride 110 mmol/L (98-107); Glucose 193 mg/dL (74-99); Magnesium 1.5 mg/dL (1.6-2.3); Non-African American GFR(CKD) 74 (>60 ml/min/1.73 sqM); Potassium 4.3 mmol/L (3.5-5.1); Sodium 138 mmol/L (137-145); Total Bilirubin 0.2 mg/dL (0.2-1.3); Total Protein 6.6 g/dL (6.3-8.2)
[2024-08-18 06:32] LABS: NT-Pro-B-Type Natriuretic Pept 33 pg/mL
[2024-08-18] MEDS: METOPROLOL TARTRATE 50 MG TAB PO STA (06:48)
[2024-08-18 07:02] VITALS: BP 158/83; PULSE 75
== END 2024-08-18 07:15 | disposition home or self-care (01) ==
LOC: EC 05:14
DX: I10 Essential (primary) hypertension (principal); Z87.891 Personal history of nicotine dependence; Z79.899 Other long term (current) drug therapy
CPT/HCPCS: 36415; 93005; 83880; 80053; 83735; 84100; 84484; 85025; 99284; 96374; 96361; J1920

== ENCOUNTER → 2024-09-16 | Outpatient (CLI) | payer MEDICARE ==
[2024-09-16 18:41] LABS: Chol/HDL Ratio 3.32 Ratio; LDL Cholesterol,Calculated 141.3 mg/dL (0.0-131.0); T4, Free (Free Thyroxine) 1.21 ng/dL (0.80-1.80); VLDL Calculation 12.48 mg/dL (5.00-40.00)
[2024-09-16 20:12] LABS: Microalbumin Creatinine Ratio <9 mg/g Cr (0-30)
== END | disposition home or self-care (01) ==
LOC: LABWHC1 13:29
PROVIDERS: ATTEND Family Medicine
DX: I15.9 Secondary hypertension, unspecified (principal); I10 Essential (primary) hypertension; E78.5 Hyperlipidemia, unspecified; E11.65 Type 2 diabetes mellitus with hyperglycemia; E55.9 Vitamin D deficiency, unspecified
CPT/HCPCS: 36415; 80061; 82043; 82306; 82570; 83036; 83835; 84439; 84443